=== PATIENT | female | born 1980 | race American Indian/Alaskan Native ===

== ENCOUNTER 2017-05-08 18:36 | Emergency (ER) | payer MEDICAID ==
[2017-05-09 03:21] VITALS: BP 117/75
== END 2017-05-09 05:03 | disposition left against medical advice (07) ==
LOC: ED 18:36
DX: R51 Headache (principal); R42 Dizziness and giddiness; Z53.21 Procedure and treatment not carried out due to patient leaving prior to being seen by health care provider

== ENCOUNTER 2017-08-28 12:53 | Emergency (ER) | payer MEDICAID ==
[2017-08-28 13:58] VITALS: BP 133/69
[2017-08-28 14:42] LABS: Basophils # (Auto) 0.1 K/mm3 (0.0-0.1); Basophils % (Auto) 0.7 % (0.0-1.8); Eosinophils % (Auto) 0.4 % (0.0-4.3); Hematocrit 40.9 % (30.3-42.9); Hemoglobin 13.8 gm/dl (10.1-14.3); Lymphocytes % (Auto) 10.9 % (13.4-35.0); Mean Corpuscular HGB Conc 34 % (30-34); Mean Corpuscular Hemoglobin 29 pg (28-32); Mean Corpuscular Volume 86 fl (79-97); Monocytes # (Auto) 0.3 K/mm3 (0.0-0.8); Monocytes % (Auto) 3.2 % (0.0-7.3); Platelet Count 318 K/mm3 (140-440); Red Blood Count 4.76 M/mm3 (3.65-5.03)
[2017-08-28 14:51] LABS: Bilirubin,Urine NEG (Negative); Blood,Urine NEG (Negative); Color,Urine Yellow (Yellow); Mucus,Urine FEW /HPF; Urobilinogen,Urine < 2.0 mg/dL (<2.0)
[2017-08-28 14:53] LABS: Alanine Aminotransferase 12 units/L (7-56); Albumin 4.4 g/dL (3.9-5); BUN/Creatinine Ratio 23; Blood Urea Nitrogen 14 mg/dL (7-17); Calcium 9.5 mg/dL (8.4-10.2); Hemolysis Index 8; Lipase 14 units/L (13-60)
== END 2017-08-28 18:20 | disposition left against medical advice (07) ==
LOC: ED 12:53
DX: R10.9 Unspecified abdominal pain (principal); Z53.21 Procedure and treatment not carried out due to patient leaving prior to being seen by health care provider
CPT/HCPCS: 36415; 80053; 81001; 83690; 84703; 85025

== ENCOUNTER 2018-03-14 12:58 | Emergency (ER) | payer MEDICAID ==
[2018-03-14] MEDS ORDERED: NACL 0.9% 1000 ML 1,000 ML IV ONE (13:10)
[2018-03-14 13:47] LABS: Basophils # (Auto) 0.1 K/mm3 (0.0-0.1); Basophils % (Auto) 1.2 % (0.0-1.8); Eosinophils # (Auto) 0.1 K/mm3 (0.0-0.4); Hematocrit 37.2 % (30.3-42.9); Hemoglobin 12.4 gm/dl (10.1-14.3); Lymphocytes # (Auto) 2.7 K/mm3 (1.2-5.4); Mean Corpuscular HGB Conc 33 % (30-34); Mean Corpuscular Hemoglobin 29 pg (28-32); Mean Corpuscular Volume 88 fl (79-97); Monocytes # (Auto) 0.4 K/mm3 (0.0-0.8); Monocytes % (Auto) 5.8 % (0.0-7.3); Platelet Count 306 K/mm3 (140-440); Red Blood Count 4.23 M/mm3 (3.65-5.03); Red Cell Distribution Width 15.9 % (13.2-15.2)
[2018-03-14 14:15] LABS: Albumin 4.2 g/dL (3.9-5); BUN/Creatinine Ratio 25; Blood Urea Nitrogen 15 mg/dL (7-17); Calcium 9.7 mg/dL (8.4-10.2); Hemolysis Index 178
[2018-03-14 15:04] LABS: Alanine Aminotransferase 13 units/L (7-56)
[2018-03-14] MEDS ORDERED: TORADOL IM ONE (20:08)
[2018-03-14 20:50] LABS: Bacteria,Urine 1+ /HPF (Negative); Bilirubin,Urine NEG (Negative); Blood,Urine NEG (Negative); Color,Urine Yellow (Yellow); Mucus,Urine FEW /HPF; Protein,Urine <15 mg/dL mg/dL (Negative)
[2018-03-14 20:52] LABS: HCG Qualitative,Urine Negative (Negative)
[2018-03-14] MEDS ORDERED: MACROBID PO ONE (21:32)
--- NOTE | 2018-03-14 21:33 | Ultrasound Report ---
FINAL REPORT EXAM: US TRANSVAGINAL HISTORY: pelvic pain, hx of cyst TECHNIQUE: Ultrasound pelvis transvaginal PRIORS: None. FINDINGS: Uterus is 10.6 x 5.6 x 6.2 centimeters. No myometrial abnormalities identified There is a small fluid-filled sac at the fundus with thin chatman measuring 1.3 centimeters in transverse diameter no pole or yolk sac identified. The endometrium is thickened measuring 1.86 centimeters. Small amount of free fluid noted in the cul-de-sac Right ovary is 2.8 x 2.0 x 2.3 centimeters Normal sonographic appearance with normal flow on pulsed and color Doppler evaluation Left ovary is 2.8 x 2.3 x 2.6 centimeters. Centrally within the left ovary there is a irregular mixed echogenicity cystic structure measuring 1.8 centimeters in transverse diameter. Normal flow to the left ovary on pulsed and color Doppler evaluation IMPRESSION: Thickened endometrium with some fluid noted at the fundus of the uterus. Nonspecific finding. Consideration could be given to endometrial polyp Irregular 1.8 centimeters cyst within the left ovary possibly hemorrhagic or involuting cyst Small amount of free fluid noted in the cul-de-sac
--- NOTE | 2018-03-14 21:34 | Emergency Department Report ---
ED Abdominal Pain HPI - General Chief Complaint: Abdominal Pain Stated Complaint: STOMACH PAIN Time Seen by Provider: 03/14/18 20:02 Source: patient Mode of arrival: Ambulatory Limitations: No Limitations - History of Present Illness Initial Comments: 37-year-old female with a past medical history of ovarian cysts, umbilical hernia, sickle cell trait, and tubal ligation presents to Hospital complaining of lower abd pain 2 days. Pain is constant and pressure-like worse with palpation, Moderate to severe in intensity at times. No alleviating factors. Patient denies dysuria, hematuria, nausea, vomiting, diarrhea, fever, vaginal discharge, or vaginal bleeding. LMP approximately 3 weeks ago - Related Data Previous Rx's Medication Instructions Recorded Last Taken Type Nitrofurantoin Smith/M-Cryst 100 mg PO Q12HR #14 capsule 05/14/14 Unknown Rx [Macrobid] Ondansetron [Zofran Odt] 4 mg PO Q6H #10 tab.rapdis 05/14/14 Unknown Rx Phenazopyridine [Pyridium] 200 mg PO TID #6 tablet 05/14/14 Unknown Rx Hyoscyamine Subl [Levsin Sl 0.125 0.125 mg SL Q6HR PRN #12 tab 08/24/15 Unknown Rx TAB] Promethazine [Phenergan TAB] 25 mg PO Q6HR PRN #20 tab 08/24/15 Unknown Rx HYDROcodone/APAP 5-325 [Mcdonald 1 each PO Q6HR PRN #15 tablet 03/14/18 Unknown Rx 5/325] Ibuprofen [Motrin] 600 mg PO Q8H PRN #30 tablet 03/14/18 Unknown Rx Nitrofurantoin Monohyd/M-Cryst 100 mg PO BID #13 capsule 03/14/18 Unknown Rx [Macrobid 100 mg Capsule] Allergies Allergy/AdvReac Type Severity Reaction Status Date / Time tramadol AdvReac Headache Verified 05/14/14 08:44 ED Review of Systems ROS: Stated complaint: STOMACH PAIN Other details as noted in HPI Comment: All other systems reviewed and negative ED Past Medical Hx - Past Medical History Previous Medical History?: Yes Hx Sickle Cell Disease: Yes (Trait only) Additional medical history: Bursitis both shoulders. scoleosis - Surgical History Past Surgical History?: No - Social History Smoking Status: Current Every Day Smoker Substance Use Type: None - Medications Home Medications: Home Medications Medication Instructions Recorded Confirmed Last Taken Type Nitrofurantoin Smith/M-Cryst 100 mg PO Q12HR #14 capsule 05/14/14 Unknown Rx [Macrobid] Ondansetron [Zofran Odt] 4 mg PO Q6H #10 tab.rapdis 05/14/14 Unknown Rx Phenazopyridine [Pyridium] 200 mg PO TID #6 tablet 05/14/14 Unknown Rx Hyoscyamine Subl [Levsin Sl 0.125 0.125 mg SL Q6HR PRN #12 tab 08/24/15 Unknown Rx TAB] Promethazine [Phenergan TAB] 25 mg PO Q6HR PRN #20 tab 08/24/15 Unknown Rx HYDROcodone/APAP 5-325 [Mcdonald 1 each PO Q6HR PRN #15 tablet 03/14/18 Unknown Rx 5/325] Ibuprofen [Motrin] 600 mg PO Q8H PRN #30 tablet 03/14/18 Unknown Rx Nitrofurantoin Monohyd/M-Cryst 100 mg PO BID #13 capsule 03/14/18 Unknown Rx [Macrobid 100 mg Capsule] ED Physical Exam - General Limitations: No Limitations - Other Other exam information: General: No limitations, patient is alert in no acute distress Head exam: Atraumatic, normocephalic Eyes exam: Normal appearance, pupils equal reactive to light, extraocular movements intact ENT: Moist mucous membrane, normal oropharynx Neck exam: Normal inspection, full range of motion, no meningismus nontender Respiratory exam: Clear to auscultation bilateral, no wheezes, rales, crackles Cardiovascular: Normal rate and rhythm, normal heart sounds Abdomen: Soft, nondistended, suprapubic tenderness, with normal bowel sounds, no rebound, or guarding Extremity: Full range of motion normal inspection no deformity Back: Normal Inspection, full range of motion, no tenderness Neurologic: Alert, oriented x3, cranial nerves intact, no motor or sensory deficit Psychiatric: normal affect, normal mood Skin: Warm, dry, intact ED Course Vital Signs 03/14/18 03/14/18 13:05 21:45 Temperature 98.3 F Pulse Rate 87 72 Respiratory 16 16 Rate Blood Pressure 131/71 Blood Pressure 104/69 [Left] O2 Sat by Pulse 99 100 Oximetry - Reevaluation(s) Reevaluation #1: 03/14/18 Patient states Toradol for pain Macrobid for UTI ED Medical Decision Making - Lab Data Result diagrams: 03/14/18 13:14 03/14/18 13:14 Lab Results 03/14/18 03/14/18 03/14/18 Range/Units 13:14 13:14 20:29 WBC 7.6 (4.5-11.0) K/mm3 RBC 4.23 (3.65-5.03) M/mm3 Hgb 12.4 (10.1-14.3) gm/dl Hct 37.2 (30.3-42.9) % MCV 88 (79-97) fl MCH 29 (28-32) pg MCHC 33 (30-34) % RDW 15.9 H (13.2-15.2) % Plt Count 306 (140-440) K/mm3 Lymph % (Auto) 36.0 H (13.4-35.0) % Smith % (Auto) 5.8 (0.0-7.3) % Eos % (Auto) 2.0 (0.0-4.3) % Baso % (Auto) 1.2 (0.0-1.8) % Lymph # 2.7 (1.2-5.4) K/mm3 Smith # 0.4 (0.0-0.8) K/mm3 Eos # 0.1 (0.0-0.4) K/mm3 Baso # 0.1 (0.0-0.1) K/mm3 Seg Neutrophils % 55.0 (40.0-70.0) % Seg Neutrophils # 4.2 (1.8-7.7) K/mm3 Sodium 138 (137-145) mmol/L Potassium 4.4 (3.6-5.0) mmol/L Chloride 104.3 (98-107) mmol/L Carbon Dioxide 20 L (22-30) mmol/L Anion Gap 18 mmol/L BUN 15 (7-17) mg/dL Creatinine 0.6 L (0.7-1.2) mg/dL Estimated GFR > 60 ml/min BUN/Creatinine Ratio 25 % Glucose 92 (65-100) mg/dL Calcium 9.7 (8.4-10.2) mg/dL Total Bilirubin 0.30 (0.1-1.2) mg/dL AST 33 (5-40) units/L ALT 13 (7-56) units/L Alkaline Phosphatase 79 (35-129) units/L Total Protein 7.6 (6.3-8.2) g/dL Albumin 4.2 (3.9-5) g/dL Albumin/Globulin Ratio 1.2 % Urine Color Yellow (Yellow) Urine Turbidity Slightly-cloudy (Clear) Urine pH 6.0 (5.0-7.0) Ur Specific [place] 1.012 (1.003-1.030) Urine Protein <15 mg/dl (Negative) mg/dL Urine Glucose (UA) Neg (Negative) mg/dL Urine Ketones Neg (Negative) mg/dL Urine Blood Neg (Negative) Urine Nitrite Neg (Negative) Urine Bilirubin Neg (Negative) Urine Urobilinogen 2.0 (<2.0) mg/dL Ur Leukocyte Esterase Mod (Negative) Urine WBC (Auto) 12.0 H (0.0-6.0) /HPF Urine RBC (Auto) 4.0 (0.0-6.0) /HPF U Epithel Cells (Auto) 6.0 (0-13.0) /HPF Urine Bacteria (Auto) 1+ (Negative) /HPF Urine Mucus Few /HPF Urine HCG, Qual Negative (Negative) - Radiology Data Radiology results: report reviewed Pelvic/Transvaginal ultrasound: thickened endometrium with some fluid noted at the fundus of the uterus. Nonspecific finding. Consideration could be given to endometrial polyp. Irregular 1.8cm Cyst within the left ovary possibly hemorrhagic or involuting cyst - Medical Decision Making Pelvic pain 2 days. Positive UTI UA. Ultrasound reviewed and positive cyst. Outpatient follow-up with [facility] and [facility] will be encouraged. Patient received Macrobid and Toradol. - Differential Diagnosis UTI, , diverticulitis, appendicitis, ovarian cyst, PID Critical Care Time: No Critical care attestation.: If time is entered above; I have spent that time in minutes in the direct care of this critically ill patient, excluding procedure time. ED Disposition Clinical Impression: UTI (urinary tract infection), Ovarian cyst Disposition: - TO HOME OR SELFCARE Is pt being admited?: No Does the pt Need Aspirin: No Condition: Stable Instructions: Ovarian Cyst (ED), Urinary Tract Infection in Women (ED) Additional Instructions: Take the medication as prescribed. Follow up with your doctor or with the doctors provided. Return if symptoms worsen as indicated by your discharge instructions Prescriptions: HYDROcodone/APAP 5-325 [Mcdonald 5/325] 1 each PO Q6HR PRN #15 tablet PRN Reason: Pain Ibuprofen [Motrin] 600 mg PO Q8H PRN #30 tablet PRN Reason: Pain Nitrofurantoin Monohyd/M-Cryst [Macrobid 100 mg Capsule] 100 mg PO BID #13 capsule Referrals: KIANA WOOTEN JR, MD [Staff Physician] - 3-5 Days [facility] [Provider Group] - 3-5 Days SARAH HERNANDEZ MD [Staff Physician] - 3-5 Days Time of Disposition: 22:05
--- NOTE | 2018-03-14 21:35 | Ultrasound Report ---
FINAL REPORT EXAM: US PELVIC COMPLETE HISTORY: pelvic pain, hx of cyst TECHNIQUE: PRIORS: None. FINDINGS: Uterus is 10.6 x 5.6 x 6.2 centimeters. No myometrial abnormalities identified There is a small fluid-filled sac at the fundus with thin chatman measuring 1.3 centimeters in transverse diameter no pole or yolk sac identified. The endometrium is thickened measuring 1.86 centimeters. Small amount of free fluid noted in the cul-de-sac Right ovary is 2.8 x 2.0 x 2.3 centimeters Normal sonographic appearance with normal flow on pulsed and color Doppler evaluation Left ovary is 2.8 x 2.3 x 2.6 centimeters. Centrally within the left ovary there is a irregular mixed echogenicity cystic structure measuring 1.8 centimeters in transverse diameter. Normal flow to the left ovary on pulsed and color Doppler evaluation IMPRESSION: Thickened endometrium with some fluid noted at the fundus of the uterus. Nonspecific finding. Consideration could be given to endometrial polyp or hyperplasia Irregular 1.8 centimeters cyst within the left ovary possibly hemorrhagic or involuting cyst Small amount of free fluid noted in the cul-de-sac
[2018-03-14 21:46] VITALS: BP 104/69
== END 2018-03-14 22:16 | disposition home or self-care (01) ==
LOC: ED 12:58
DX: N39.0 Urinary tract infection, site not specified (principal); N83.209 Unspecified ovarian cyst, unspecified side; F17.200 Nicotine dependence, unspecified, uncomplicated; D57.3 Sickle-cell trait; Z88.6 Allergy status to analgesic agent; Z79.899 Other long term (current) drug therapy
CPT/HCPCS: 36415; 76830; 76856; 80053; 81001; 81025; 85025; 96372; 99284; J1885

== ENCOUNTER 2018-08-14 02:17 | Emergency (ER) | payer MEDICAID ==
[2018-08-14 02:44] LABS: Mean Corpuscular HGB Conc 33 % (30-34); Mean Corpuscular Volume 87 fl (79-97); Platelet Count 307 K/mm3 (140-440); Red Blood Count 4.48 M/mm3 (3.65-5.03); Red Cell Distribution Width 16.1 % (13.2-15.2)
[2018-08-14] MEDS ORDERED: ZOFRAN IV ONE (02:56)
[2018-08-14] MEDS ORDERED: ZOFRAN ONE (02:56)
[2018-08-14 03:08] LABS: Alanine Aminotransferase 12 units/L (7-56); Albumin 4.3 g/dL (3.9-5); BUN/Creatinine Ratio 20; Blood Urea Nitrogen 12 mg/dL (7-17); Calcium 9.3 mg/dL (8.4-10.2); Hemolysis Index 3
[2018-08-14] MEDS ORDERED: NACL 0.9% 1000 ML 1,000 ML IV ONE (03:14)
[2018-08-14] MEDS ORDERED: TORADOL IV ONE (03:15)
[2018-08-14] MEDS ORDERED: DILAUDID IV ONE (03:15)
--- NOTE | 2018-08-14 03:16 | Emergency Department Report ---
ED General Adult HPI - General Chief complaint: Abdominal Pain Stated complaint: ABD PAIN Time Seen by Provider: 08/14/18 02:26 Source: patient, EMS (ems notes not available at time of chart dictation), RN notes reviewed, old records reviewed Mode of arrival: Stretcher Limitations: No Limitations - History of Present Illness Initial comments: This is a 37-year-old female. The patient is not known to this provider previously. The patient reports that she is not . Patient endorses a history of left-sided ovarian cyst. The patient reports that her sql server developer is Dr. Hollis Gutierrez. He denies a history of abdominal surgeries to this provider. She presents to the emergency room with a complaint of constant suprapubic and bilateral lower quadrant abdominal pain, there are no exacerbating or relieving factors, there is no radiation. The patient denies irritative, obstructive urinary symptoms. Endorses a few episodes of nonbloody, nonbilious emesis. Patient reports that she defecated within the past 24-36 hours. She is passing gas normally. -: Gradual, hour(s) Location: abdomen, pelvis Radiation: non-radiation Severity scale (0 -10): 10 Quality: aching Consistency: constant Improves with: none Worsens with: none - Related Data Previous Rx's Medication Instructions Recorded Last Taken Type Nitrofurantoin [place]/M-Cryst 100 mg PO Q12HR #14 capsule 05/14/14 Unknown Rx [Macrobid] Ondansetron [Zofran Odt] 4 mg PO Q6H #10 tab.rapdis 05/14/14 Unknown Rx Phenazopyridine [Pyridium] 200 mg PO TID #6 tablet 05/14/14 Unknown Rx Hyoscyamine Subl [Levsin Sl 0.125 0.125 mg SL Q6HR PRN #12 tab 08/24/15 Unknown Rx TAB] Promethazine [Phenergan TAB] 25 mg PO Q6HR PRN #20 tab 08/24/15 Unknown Rx HYDROcodone/APAP 5-325 [[place] 1 each PO Q6HR PRN #15 tablet 03/14/18 Unknown Rx 5/325] Ibuprofen [Motrin] 600 mg PO Q8H PRN #30 tablet 03/14/18 Unknown Rx Nitrofurantoin Monohyd/M-Cryst 100 mg PO BID #13 capsule 03/14/18 Unknown Rx [Macrobid 100 mg Capsule] Acetaminophen [Tylenol Arthritis] 650 mg PO Q6HR PRN #30 tablet.er 08/14/18 Unknown Rx Ibuprofen [Motrin] 600 mg PO Q8H PRN #30 tablet 08/14/18 Unknown Rx Ondansetron [Zofran Odt] 4 mg PO Q8HR PRN #20 tab.rapdis 08/14/18 Unknown Rx Allergies Allergy/AdvReac Type Severity Reaction Status Date / Time tramadol AdvReac Headache Verified 05/14/14 08:44 ED Review of Systems ROS: Stated complaint: ABD PAIN Other details as noted in HPI Constitutional: malaise. denies: fever Eyes: denies: vision change ENT: denies: epistaxis Respiratory: denies: cough Cardiovascular: denies: chest pain Gastrointestinal: abdominal pain, nausea, vomiting. denies: diarrhea, constip ation, hematemesis, melena, hematochezia Genitourinary: denies: dysuria Musculoskeletal: denies: back pain Skin: denies: lesions Neurological: weakness ED Past Medical Hx - Past Medical History Previous Medical History?: Yes Hx Sickle Cell Disease: Yes (Trait only) Additional medical history: Bursitis both shoulders. Scoleosis. Ovarian cyst. Umbilical hernia - Surgical History Past Surgical History?: No - Social History Smoking Status: Current Every Day Smoker Substance Use Type: None - Medications Home Medications: Home Medications Medication Instructions Recorded Confirmed Last Taken Type Nitrofurantoin [place]/M-Cryst 100 mg PO Q12HR #14 capsule 05/14/14 Unknown Rx [Macrobid] Ondansetron [Zofran Odt] 4 mg PO Q6H #10 tab.rapdis 05/14/14 Unknown Rx Phenazopyridine [Pyridium] 200 mg PO TID #6 tablet 05/14/14 Unknown Rx Hyoscyamine Subl [Levsin Sl 0.125 0.125 mg SL Q6HR PRN #12 tab 08/24/15 Unknown Rx TAB] Promethazine [Phenergan TAB] 25 mg PO Q6HR PRN #20 tab 08/24/15 Unknown Rx HYDROcodone/APAP 5-325 [[place] 1 each PO Q6HR PRN #15 tablet 03/14/18 Unknown Rx 5/325] Ibuprofen [Motrin] 600 mg PO Q8H PRN #30 tablet 03/14/18 Unknown Rx Nitrofurantoin Monohyd/M-Cryst 100 mg PO BID #13 capsule 03/14/18 Unknown Rx [Macrobid 100 mg Capsule] Acetaminophen [Tylenol Arthritis] 650 mg PO Q6HR PRN #30 tablet.er 08/14/18 Unknown Rx Ibuprofen [Motrin] 600 mg PO Q8H PRN #30 tablet 08/14/18 Unknown Rx Ondansetron [Zofran Odt] 4 mg PO Q8HR PRN #20 tab.rapdis 08/14/18 Unknown Rx ED Physical Exam - General Limitations: No Limitations General appearance: alert, anxious - Head Head exam: Present: atraumatic, normocephalic - Eye Eye exam: Present: normal appearance, EOMI. Absent: nystagmus - ENT ENT exam: Present: normal exam, normal orophraynx, mucous membranes moist, normal external ear exam - Neck Neck exam: Present: normal inspection, full ROM. Absent: tenderness, meningismus - Respiratory Respiratory exam: Present: normal lung sounds bilaterally. Absent: respiratory distress - Cardiovascular Cardiovascular Exam: Present: regular rate, normal rhythm, normal heart sounds. Absent: bradycardia, tachycardia, irregular rhythm, systolic murmur, diastolic murmur, rubs, gallop - GI/Abdominal GI/Abdominal exam: Present: soft, tenderness, other (there is mild lower abdominal tenderness, without rebound, guarding or peritoneal signs.). Absent: distended, guarding, rebound, rigid, pulsatile mass - External exam: Present: normal external exam Speculum exam: Present: vaginal bleeding, other (chaperoned by nurse Meagan Ponce) - Extremities Exam Extremities exam: Present: normal inspection, full ROM, other (2+ pulses noted in the bilateral upper, lower extremities. Compartments soft. No long bony tenderness. The pelvis is stable.). Absent: pedal edema, joint swelling, calf tenderness - Back Exam Back exam: Present: normal inspection, full ROM, CVA tenderness (R). Absent: tenderness, CVA tenderness (L), muscle spasm, paraspinal tenderness, vertebral tenderness - Neurological Exam Neurological exam: Present: alert, oriented X3, CN II-XII intact, other (Extraocular movements intact. Tongue midline. No facial droop. Facial sensation intact to light touch in the V1, V2, V3 distribution bilaterally. 5 and 5 strength in 4 extremities.. Sensation is intact to light touch in 4 extremities.). Absent: motor sensory deficit - Psychiatric Psychiatric exam: Present: normal affect, normal mood - Skin Skin exam: Present: warm, dry, intact, normal color. Absent: rash ED Course Vital Signs 08/14/18 08/14/18 08/14/18 02:29 05:04 05:59 Temperature 97.6 F Pulse Rate 88 62 Respiratory 20 11 L Rate Blood Pressure 124/62 117/57 [Left] O2 Sat by Pulse 99 97 98 Oximetry 08/14/18 06:10 Temperature Pulse Rate 73 Respiratory 12 Rate Blood Pressure 100/55 [Left] O2 Sat by Pulse Oximetry - Reevaluation(s) Reevaluation #1: 08/14/18 05:47 According to the lead medical technologist, because of the technical issue, they are not able to push the images over to remote radiology. They have information technology working on this issue. Care will be transferred to the oncoming ER physician, Dr. Le Rodriguez, to follow-up on ultrasound and arrange final disposition. ED Medical Decision Making - Lab Data Result diagrams: 08/14/18 02:38 08/14/18 02:38 Vital Signs 08/14/18 02:29 Temperature 97.6 F Pulse Rate 88 Respiratory 20 Rate Blood Pressure 124/62 [Left] O2 Sat by Pulse 99 Oximetry Lab Results 08/14/18 08/14/18 08/14/18 Range/Units 02:38 02:38 02:38 WBC 7.8 (4.5-11.0) K/mm3 RBC 4.48 (3.65-5.03) M/mm3 Hgb 13.0 (10.1-14.3) gm/dl Hct 39.0 (30.3-42.9) % MCV 87 (79-97) fl MCH 29 (28-32) pg MCHC 33 (30-34) % RDW 16.1 H (13.2-15.2) % Plt Count 307 (140-440) K/mm3 Sodium 143 (137-145) mmol/L Potassium 3.7 (3.6-5.0) mmol/L Chloride 106.8 (98-107) mmol/L Carbon Dioxide 23 (22-30) mmol/L Anion Gap 17 mmol/L BUN 12 (7-17) mg/dL Creatinine 0.6 L (0.7-1.2) mg/dL Estimated GFR > 60 ml/min BUN/Creatinine Ratio 20 % Glucose 112 H (65-100) mg/dL Calcium 9.3 (8.4-10.2) mg/dL Total Bilirubin 0.50 (0.1-1.2) mg/dL AST 16 (5-40) units/L ALT 12 (7-56) units/L Alkaline Phosphatase 94 (35-129) units/L Total Protein 7.1 (6.3-8.2) g/dL Albumin 4.3 (3.9-5) g/dL Albumin/Globulin Ratio 1.5 % Lipase 22 (13-60) units/L HCG, Quant < 2 (0-4) mIU/mL Urine Color (Yellow) Urine Turbidity (Clear) Urine pH (5.0-7.0) Ur Specific [place] (1.003-1.030) Urine Protein (Negative) mg/dL Urine Glucose (UA) (Negative) mg/dL Urine Ketones (Negative) mg/dL Urine Blood (Negative) Urine Nitrite (Negative) Urine Bilirubin (Negative) Urine Urobilinogen (<2.0) mg/dL Ur Leukocyte Esterase (Negative) Urine WBC (Auto) (0.0-6.0) /HPF Urine RBC (Auto) (0.0-6.0) /HPF U Epithel Cells (Auto) (0-13.0) /HPF Urine Mucus /HPF Urine Opiates Screen Urine Methadone Screen Ur Barbiturates Screen Ur Phencyclidine Scrn Ur Amphetamines Screen U Benzodiazepines Scrn Urine Cocaine Screen 08/14/18 08/14/18 Range/Units 03:49 03:49 WBC (4.5-11.0) K/mm3 RBC (3.65-5.03) M/mm3 Hgb (10.1-14.3) gm/dl Hct (30.3-42.9) % MCV (79-97) fl MCH (28-32) pg MCHC (30-34) % RDW (13.2-15.2) % Plt Count (140-440) K/mm3 Sodium (137-145) mmol/L Potassium (3.6-5.0) mmol/L Chloride (98-107) mmol/L Carbon Dioxide (22-30) mmol/L Anion Gap mmol/L BUN (7-17) mg/dL Creatinine (0.7-1.2) mg/dL Estimated GFR ml/min BUN/Creatinine Ratio % Glucose (65-100) mg/dL Calcium (8.4-10.2) mg/dL Total Bilirubin (0.1-1.2) mg/dL AST (5-40) units/L ALT (7-56) units/L Alkaline Phosphatase (35-129) units/L Total Protein (6.3-8.2) g/dL Albumin (3.9-5) g/dL Albumin/Globulin Ratio % Lipase (13-60) units/L HCG, Quant (0-4) mIU/mL Urine Color Red (Yellow) Urine Turbidity Clear (Clear) Urine pH 9.0 H (5.0-7.0) Ur Specific [place] 1.013 (1.003-1.030) Urine Protein 100 mg/dl (Negative) mg/dL Urine Glucose (UA) Neg (Negative) mg/dL Urine Ketones Neg (Negative) mg/dL Urine Blood Lg (Negative) Urine Nitrite Neg (Negative) Urine Bilirubin Neg (Negative) Urine Urobilinogen < 2.0 (<2.0) mg/dL Ur Leukocyte Esterase Tr (Negative) Urine WBC (Auto) 61.0 H (0.0-6.0) /HPF Urine RBC (Auto) 148.0 (0.0-6.0) /HPF U Epithel Cells (Auto) 2.0 (0-13.0) /HPF Urine Mucus Few /HPF Urine Opiates Screen Presumptive negative Urine Methadone Screen Presumptive negative Ur Barbiturates Screen Presumptive negative Ur Phencyclidine Scrn Presumptive negative Ur Amphetamines Screen Presumptive negative U Benzodiazepines Scrn Presumptive negative Urine Cocaine Screen Presumptive negative - Radiology Data Radiology results: report reviewed, image reviewed Print Report Referring Physician: BRODY MCGRATH Patient Name: MILAGROS DIAMOND Date of : 1980 Sex: Female Report Date: 2018-08-14 Report Status: Finalized Findings [facility] [address] [place] [address] Cat Scan Report Signed Patient: MILAGROS DIAMOND MR#: [id number] : 1980 Acct:[id number] Age/Sex: 37 / F ADM Date: 08/14/18 Loc: ED Attending Dr: Ordering Physician: BRODY MCGRATH MD Date of Service: 08/14/18 Procedure(s): CT abdomen pelvis w con Accession Number(s): [id number] cc: BRODY MCGRATH MD PROCEDURE: CT ABDOMEN PELVIS W CON TECHNIQUE: CT imaging is obtained through the abdomen and pelvis following intravenous administration of contrast in arterial and delayed phases HISTORY: abd pain n/v COMPARISONS: None FINDINGS: Partially visualized intrathoracic contents are unremarkable. The liver, gallbladder, pancreas, spleen, and adrenal glands are unremarkable. Kidneys show no worrisome lesions, hydronephrosis, or calculi. A couple of simple appearing right renal cysts are noted measuring up to 2 cm. Urinary bladder is without intraluminal stone. Question mild urinary bladder wall thickening. Retroverted uterus. No free fluid in the pelvis. Small and large bowel are normal in caliber. Appendix is normal. No free air, free fluid, or lymphadenopathy identified. Aorta is normal in course and caliber. Superficial soft tissues are remarkable for rectus diastasis and a small fat-containing umbilical hernia. No acute or aggressive appearing skeletal findings. IMPRESSION: Mild urinary bladder wall thickening, which may be infectious in etiology. Correlation with urinalysis is requested. No other potentially acute findings in the abdomen or pelvis. This document is electronically signed by Brody Santoyo MD., August 14 2018 04:23:57 AM ET Transcribed By: MB Dictated By: BRODY SANTOYO MD Electronically Authenticated By: BRODY SANTOYO MD Signed Date/Time: 08/14/18 0426 Referring Physician: BRODY MCGRATH Patient Name: MILAGROS DIAMOND Date of : 1980 Sex: Female Report Date: 2018-08-14 Report Status: Finalized [facility] [address] [place] [address] Ultrasound Report Signed Patient: MILAGROS DIAMOND MR#: [id number] : 1980 Acct:[id number] Age/Sex: 37 / F ADM Date: 08/14/18 Loc: ED A ttending Dr: Ordering Physician: BRODY MCGRATH MD Date of Service: 03/08/19 Procedure(s): US transvaginal Accession Number(s): [id number] cc: BRODY MCGRATH MD PROCEDURE: US TRANSVAGINAL TECHNIQUE: Real-time transvaginal sonography in multiple planes of the pelvis was performed with image documentation. Grayscale, color flow Doppler imaging and velocity spectral waveform analysis of the ovaries was employed (duplex imaging). HISTORY: abd pain pelvic pain COMPARISONS: None . FINDINGS: UTERUS Size: 9.2 x 5.5 x 5.6 cm. Endometrial thickness: 12.3 mm. Orientation: anteverted. Cervix: Normal. Fibroids/masses: There are 2 posterior fibroids measuring 1 cm and 1.8 cm.. Tubal embolization wires are incidentally noted extending into the cornua bilaterally. RIGHT Ovary: 3.5 x 2.3 x 2.4 cm. Appearance: Normal. Doppler images: Normal spectral waveforms and color flow images of the arterial inflow and venous outflow.. LEFT Ovary: 2.5 x 1.5 x 1.5 cm. Appearance: Normal. Doppler images: Normal spectral waveforms and color flow images of the arterial inflow and venous outflow.. Pelvic fluid: None. IMPRESSION: There are small incidental uterine fibroids. There is no ovarian torsion or mass. There is no free pelvic fluid.. This document is electronically signed by Mj Markham MD., August 14 2018 07:25:17 AM ET Transcribed By: CO Dictated By: MJ MARKHAM MD Electronically Authenticated By: MJ MARKHAM MD Signed Date/Time: 08/14/18 0727 - Medical Decision Making Differential diagnosis, including but not limited to: Dysfunctional uterine bleeding, ovarian cyst, ovarian torsion, endometriosis, pelvic inflammatory disease, appendicitis, colitis, constipation, diverticulitis Assessment and plan: 37-year-old female with acute on chronic abdominal pain related to menstruation. The patient is afebrile with reassuring vital signs with minimal lower abdominal tenderness. The patient feels much improved after hydromorphones, fluids and nausea medication. Patient is currently sleeping comfortably, in her stretcher, and is in no acute distress. CT scan of the abdomen and pelvis demonstrated no acute disease. Does not endorse any urinary symptoms, currently on her period, therefore, white blood cell count in her urine urinalysis is likely secondary to current menstruation. Clinically do not suspect urinary tract infection. May have a component of cannabinoid hyperemesis syndrome. Patient is clinically sober at this time. Critical care attestation.: If time is entered above; I have spent that time in minutes in the direct care of this critically ill patient, excluding procedure time. ED Disposition Clinical Impression: Abdominal pain, Dysmenorrhea Disposition: DC- TO HOME OR SELFCARE Is pt being admited?: No Does the pt Need Aspirin: No Condition: Stable Instructions: Abdominal Pain (ED) Additional Instructions: Cultures were sent today, and results will be available in the next 3-5 days. Have a primary care doctor or sql server developer contact the medical records department to obtain culture results. Please follow-up with a sql server developer or primary care doctor within the next 7-10 days. Take the pain medication, nausea medication as needed/directed. Urinalysis demonstrated the presence of cannabis, marijuana metabolites. I recommend the patient refrain from consuming marijuana, as this may exacerbate symptoms of abdominal pain, nausea and vomiting. Please return to the emergency room right away with new, worsening or different symptoms, projectile vomiting, change in mental status, confusion, new, worsening or different symptoms. Prescriptions: Ibuprofen [Motrin] 600 mg PO Q8H PRN #30 tablet PRN Reason: Pain Acetaminophen [Tylenol Arthritis] 650 mg PO Q6HR PRN #30 tablet.er PRN Reason: Pain Ondansetron [Zofran Odt] 4 mg PO Q8HR PRN #20 tab.rapdis PRN Reason: Nausea Referrals: [facility] [Provider Group] - 3-5 Days [facility] [Provider Group] - 3-5 Days [facility] [Provider Group] - 3-5 Days
--- NOTE | 2018-08-14 04:26 | Cat Scan Report ---
PROCEDURE: CT ABDOMEN PELVIS W CON TECHNIQUE: CT imaging is obtained through the abdomen and pelvis following intravenous administratio n of contrast in arterial and delayed phases HISTORY: abd pain n/v COMPARISONS: None FINDINGS: Partially visualized intrathoracic contents are unremarkable. The liver, gallbladder, pancreas, spleen, and adrenal glands are unremarkable. Kidneys show no worrisome lesions, hydronephrosis, or calculi. A couple of simple appearing right herber al cysts are noted measuring up to 2 cm. Urinary bladder is without intraluminal stone. Question mild urinary bladder wall thickening. Retroverted uterus. No free fluid in the pelvis. Small and large bowel are normal in caliber. Appendix is normal. No free air, free fluid, or lymphade nopathy identified. Aorta is normal in course and caliber. Superficial soft tissues are remarkable for rectus diastasis and a small fat-containing umbilical her gaurang. No acute or aggressive appearing skeletal findings. IMPRESSION: Mild urinary bladder wall thickening, which may be infectious in etiology. Correlation with urinalysi s is requested. No other potentially acute findings in the abdomen or pelvis. This document is electronically signed by Brody Weber MD., August 14 2018 04:23:57 AM ET
[2018-08-14 04:27] LABS: Amphetamine Screen,Urine PRESUMPTIVE NEGATIVE; Benzodiazepines Screen,Urine PRESUMPTIVE NEGATIVE; Bilirubin,Urine NEG (Negative); Blood,Urine LG (Negative); Cocaine Screen,Urine PRESUMPTIVE NEGATIVE; Color,Urine Red (Yellow); Methadone Screen,Urine PRESUMPTIVE NEGATIVE; Mucus,Urine FEW /HPF; Opiate Screen,Urine PRESUMPTIVE NEGATIVE; Urobilinogen,Urine < 2.0 mg/dL (<2.0)
[2018-08-14 04:49] LABS: Cannabinoid Screen,Urine PRESUMPTIVE POSITIVE
[2018-08-14 06:11] VITALS: BP 100/55
--- NOTE | 2018-08-14 07:26 | Ultrasound Report ---
PROCEDURE: US PELVIS DUPLEX DOPPLER COMP TECHNIQUE: Real-time transabdominal sonography in multiple planes of the pelvis was performed with i mage documentation. Grayscale, color flow Doppler imaging and velocity spectral waveform analysis of the ovaries was employed (duplex imaging). HISTORY: abd pain pelvic pain COMPARISONS: None . FINDINGS: UTERUS Size: 9.2 x 5.5 x 5.6 cm. Endometrial thickness: 12.3 mm. Orientation: anteverted. Cervix: Normal. Fibroids/masses: There are 2 posterior fibroids measuring 1 cm and 1.8 cm.. Tubal embolization wires are incidentally noted extending into the cornua bilaterally. RIGHT Ovary: 3.5 x 2.3 x 2.4 cm. Appearance: Normal. Doppler images: Normal spectral waveforms and color flow images of the arterial inflow and venous out flow.. LEFT Ovary: 2.5 x 1.5 x 1.5 cm. Appearance: Normal. Doppler images: Normal spectral waveforms and color flow images of the arterial inflow and venous out flow.. Pelvic fluid: None. IMPRESSION: There are small incidental uterine fibroids. There is no ovarian torsion or mass. There is no free pelvic fluid.. This document is electronically signed by Mj Dominguez MD., August 14 2018 07:24:32 AM ET
--- NOTE | 2018-08-14 07:27 | Ultrasound Report ---
PROCEDURE: US TRANSVAGINAL TECHNIQUE: Real-time transvaginal sonography in multiple planes of the pelvis was performed with patricia ge documentation. Grayscale, color flow Doppler imaging and velocity spectral waveform analysis of th e ovaries was employed (duplex imaging). HISTORY: abd pain pelvic pain COMPARISONS: None . FINDINGS: UTERUS Size: 9.2 x 5.5 x 5.6 cm. Endometrial thickness: 12.3 mm. Orientation: anteverted. Cervix: Normal. Fibroids/masses: There are 2 posterior fibroids measuring 1 cm and 1.8 cm.. Tubal embolization wires are incidentally noted extending into the cornua bilaterally. RIGHT Ovary: 3.5 x 2.3 x 2.4 cm. Appearance: Normal. Doppler images: Normal spectral waveforms and color flow images of the arterial inflow and venous out flow.. LEFT Ovary: 2.5 x 1.5 x 1.5 cm. Appearance: Normal. Doppler images: Normal spectral waveforms and color flow images of the arterial inflow and venous out flow.. Pelvic fluid: None. IMPRESSION: There are small incidental uterine fibroids. There is no ovarian torsion or mass. There is no free pelvic fluid.. This document is electronically signed by Mj Dominguez MD., August 14 2018 07:25:17 AM ET
== END 2018-08-14 08:08 | disposition home or self-care (01) ==
LOC: ED 02:17
DX: N94.6 Dysmenorrhea, unspecified (principal); F17.200 Nicotine dependence, unspecified, uncomplicated; R11.2 Nausea with vomiting, unspecified; Z88.5 Allergy status to narcotic agent
CPT/HCPCS: 36415; 74177; 76830; 80053; 80307; 81001; 83690; 84702; 85027; 87210; 87591; 93975; 96361; 96374; 96375; 99285; J1170; J1885; J2405; J7030; Q9967

== ENCOUNTER 2019-06-23 18:58 | Emergency (ER) | payer SELFPAY ==
--- NOTE | 2019-06-23 19:48 | Emergency Department Report ---
ED ENT HPI - General Chief complaint: Earache Stated complaint: EARACHE Time Seen by Provider: 06/23/19 19:43 Source: patient Mode of arrival: Ambulatory Limitations: No Limitations - History of Present Illness Initial comments: patient is a 38-year-old female presents emergency room with complaints of bilateral ear pain that began 2 days ago. She denies any drainage from the ear, fever, recent illness, sick contacts. She states she has a past medical history of sickle cell trait. She denies any daily medications. She states she has an allergy to tramadol. She states her last menstrual was last week. - Related Data Previous Rx's Medication Instructions Recorded Last Taken Type Nitrofurantoin Person/M-Cryst 100 mg PO Q12HR #14 capsule 05/14/14 Unknown Rx [Macrobid] Ondansetron [Zofran Odt] 4 mg PO Q6H #10 tab.rapdis 05/14/14 Unknown Rx Phenazopyridine [Pyridium] 200 mg PO TID #6 tablet 05/14/14 Unknown Rx Hyoscyamine Subl [Levsin Sl 0.125 0.125 mg SL Q6HR PRN #12 tab 08/24/15 Unknown Rx TAB] Promethazine [Phenergan TAB] 25 mg PO Q6HR PRN #20 tab 08/24/15 Unknown Rx HYDROcodone/APAP 5-325 [[place] 1 each PO Q6HR PRN #15 tablet 03/14/18 Unknown Rx 5/325] Ibuprofen [Motrin] 600 mg PO Q8H PRN #30 tablet 03/14/18 Unknown Rx Nitrofurantoin Monohyd/M-Cryst 100 mg PO BID #13 capsule 03/14/18 Unknown Rx [Macrobid 100 mg Capsule] Acetaminophen [Tylenol Arthritis] 650 mg PO Q6HR PRN #30 tablet.er 08/14/18 Unknown Rx Ibuprofen [Motrin] 600 mg PO Q8H PRN #30 tablet 08/14/18 Unknown Rx Ondansetron [Zofran Odt] 4 mg PO Q8HR PRN #20 tab.rapdis 08/14/18 Unknown Rx Amoxicillin [Amoxicillin TAB] 875 mg PO BID 10 Days #20 tablet 06/23/19 Unknown Rx Allergies Allergy/AdvReac Type Severity Reaction Status Date / Time tramadol AdvReac Headache Verified 05/14/14 08:44 ED Dental HPI - General Chief complaint: Earache Stated complaint: EARACHE Time Seen by Provider: 06/23/19 19:43 Source: patient Mode of arrival: Ambulatory Limitations: No Limitations - Related Data Previous Rx's Medication Instructions Recorded Last Taken Type Nitrofurantoin Person/M-Cryst 100 mg PO Q12HR #14 capsule 05/14/14 Unknown Rx [Macrobid] Ondansetron [Zofran Odt] 4 mg PO Q6H #10 tab.rapdis 05/14/14 Unknown Rx Phenazopyridine [Pyridium] 200 mg PO TID #6 tablet 05/14/14 Unknown Rx Hyoscyamine Subl [Levsin Sl 0.125 0.125 mg SL Q6HR PRN #12 tab 08/24/15 Unknown Rx TAB] Promethazine [Phenergan TAB] 25 mg PO Q6HR PRN #20 tab 08/24/15 Unknown Rx HYDROcodone/APAP 5-325 [[place] 1 each PO Q6HR PRN #15 tablet 03/14/18 Unknown Rx 5/325] Ibuprofen [Motrin] 600 mg PO Q8H PRN #30 tablet 03/14/18 Unknown Rx Nitrofurantoin Monohyd/M-Cryst 100 mg PO BID #13 capsule 03/14/18 Unknown Rx [Macrobid 100 mg Capsule] Acetaminophen [Tylenol Arthritis] 650 mg PO Q6HR PRN #30 tablet.er 08/14/18 Unknown Rx Ibuprofen [Motrin] 600 mg PO Q8H PRN #30 tablet 08/14/18 Unknown Rx Ondansetron [Zofran Odt] 4 mg PO Q8HR PRN #20 tab.rapdis 08/14/18 Unknown Rx Amoxicillin [Amoxicillin TAB] 875 mg PO BID 10 Days #20 tablet 06/23/19 Unknown Rx Allergies Allergy/AdvReac Type Severity Reaction Status Date / Time tramadol AdvReac Headache Verified 05/14/14 08:44 ED Review of Systems ROS: Stated complaint: EARACHE Other details as noted in HPI Comment: All other systems reviewed and negative ED Past Medical Hx - Past Medical History Previous Medical History?: Yes Hx Sickle Cell Disease: Yes (Trait only) Additional medical history: Bursitis both shoulders. Scoleosis. Ovarian cyst. Umbilical hernia - Surgical History Past Surgical History?: No - Social History Smoking Status: Current Every Day Smoker Substance Use Type: None - Medications Home Medications: Home Medications Medication Instructions Recorded Confirmed Last Taken Type Nitrofurantoin Person/M-Cryst 100 mg PO Q12HR #14 capsule 05/14/14 Unknown Rx [Macrobid] Ondansetron [Zofran Odt] 4 mg PO Q6H #10 tab.rapdis 05/14/14 Unknown Rx Phenazopyridine [Pyridium] 200 mg PO TID #6 tablet 05/14/14 Unknown Rx Hyoscyamine Subl [Levsin Sl 0.125 0.125 mg SL Q6HR PRN #12 tab 08/24/15 Unknown Rx TAB] Promethazine [Phenergan TAB] 25 mg PO Q6HR PRN #20 tab 08/24/15 Unknown Rx HYDROcodone/APAP 5-325 [[place] 1 each PO Q6HR PRN #15 tablet 03/14/18 Unknown Rx 5/325] Ibuprofen [Motrin] 600 mg PO Q8H PRN #30 tablet 03/14/18 Unknown Rx Nitrofurantoin Monohyd/M-Cryst 100 mg PO BID #13 capsule 03/14/18 Unknown Rx [Macrobid 100 mg Capsule] Acetaminophen [Tylenol Arthritis] 650 mg PO Q6HR PRN #30 tablet.er 08/14/18 Unknown Rx Ibuprofen [Motrin] 600 mg PO Q8H PRN #30 tablet 08/14/18 Unknown Rx Ondansetron [Zofran Odt] 4 mg PO Q8HR PRN #20 tab.rapdis 08/14/18 Unknown Rx Amoxicillin [Amoxicillin TAB] 875 mg PO BID 10 Days #20 tablet 06/23/19 Unknown Rx ED Physical Exam - General Limitations: No Limitations General appearance: alert, in no apparent distress - Head Head exam: Present: atraumatic, normocephalic - ENT ENT exam: Present: normal orophraynx, mucous membranes moist, other (right TM and canal are normal, left TM is bulging with mild erythema, TM is intact, left canal is normal, uvula is midline, no uvular edema, no tonsillar hypertrophy or exudates, no TTP over the bilateral mastoid processes) - Neck Neck exam: Absent: lymphadenopathy - Respiratory Respiratory exam: Present: normal lung sounds bilaterally. Absent: respiratory distress, wheezes, rales, rhonchi, stridor, chest wall tenderness, accessory muscle use, decreased breath sounds, prolonged expiratory - Cardiovascular Cardiovascular Exam: Present: regular rate, normal rhythm, normal heart sounds. Absent: systolic murmur, diastolic murmur, rubs, gallop - Neurological Exam Neurological exam: Present: alert, oriented X3 - Psychiatric Psychiatric exam: Present: normal affect, normal mood - Skin Skin exam: Present: warm, dry, intact ED Course Vital Signs 06/23/19 19:00 Temperature 98.3 F Respiratory 16 Rate Blood Pressure 118/70 ED Medical Decision Making - Medical Decision Making patient is a 38-year-old female presents emergency room with complaints of bilateral ear pain that began 2 days ago. She denies any drainage from the ear, fever, recent illness, sick contacts. She states she has a past medical history of sickle cell trait. She denies any daily medications. She states she has an allergy to tramadol. She states her last menstrual was last week. vitals are normal. on exam: right TM and canal are normal, left TM is bulging with mild erythema, TM is intact, left canal is normal, uvula is midline, no uvular edema, no tonsillar hypertrophy or exudates, no TTP over the bilateral mastoid processes. examination consistent with left otitis. No signs of mastoiditis. pt given prescription for amoxicillin. advised pt to please take medication as prescribed. May use Sudafed gvnv-afk-uevarpl to help with ear pressure. May use an ipxe-ehb-lysksmo ear relief drop. May take Tylenol or ibuprofen for any discomfort. Follow-up with a primary care doctor in the next 2-3 days for reexamination. Return to the emergency room for any new or worsening symptoms. - Differential Diagnosis otitis media, otitis externa, mastoiditis, peritonsillar abscess, FB Critical care attestation.: If time is entered above; I have spent that time in minutes in the direct care of this critically ill patient, excluding procedure time. ED Disposition Clinical Impression: Left otitis media Qualifiers: Otitis media type: suppurative Chronicity: acute Recurrence: non-recurrent Spontaneous tympanic membrane rupture: without spontaneous rupture Qualified Code(s): H66.002 - Acute suppurative otitis media without spontaneous rupture of ear drum, left ear Disposition: TO HOME OR SELFCARE Is pt being admited?: No Does the pt Need Aspirin: No Condition: Stable Instructions: Otitis Media (ED) Additional Instructions: please take medication as prescribed. May use Sudafed ijjs-hpp-reqxvtr to help with ear pressure. May use an dcka-gfl-pgqqece ear relief drop. May take Tylenol or ibuprofen for any discomfort. Follow-up with a primary care doctor in the next 2-3 days for reexamination. Return to the emergency room for any new or worsening symptoms. Prescriptions: Amoxicillin [Amoxicillin TAB] 875 mg PO BID 10 Days #20 tablet Referrals: ROSANA HOWELL MD [Staff Physician] - 2-3 Days [facility] [Outside] - 2-3 Days [facility] [Outside] - 2-3 Days [facility] [Provider Group] - 2-3 Days Time of Disposition: 19:46 Print Language: LITHUANIAN
[2019-06-23 19:53] VITALS: BP 118/70
== END 2019-06-23 19:50 | disposition home or self-care (01) ==
LOC: ED 18:58
DX: H66.92 Otitis media, unspecified, left ear (principal); F17.200 Nicotine dependence, unspecified, uncomplicated
CPT/HCPCS: 99282

== ENCOUNTER 2019-06-28 11:52 | Emergency (ER) | payer SELFPAY ==
[2019-06-28 12:50] VITALS: BP 112/72
--- NOTE | 2019-06-28 12:57 | Event Note ---
ED Screening Note ED Screening Note: The patient was seen in triage for continued and worsen ear pain (seen here 5 days ago). fever, vomiting and abdominal pain. sore throat too. Labs/imaging ordered to evaluate for a cause of this complaint. Vital signs reviewed, patient awake and alert in NAD. cxr, strep, labs This initial assessment/diagnostic orders/clinical plan/treatment(s) is/are subject to change based on patients health status, clinical progression and re- assessment by fellow clinical providers in the ED. Further treatment and workup at subsequent clinical providers discretion. Patient/guardian urged not to elope from the ED as their condition may be serious if not clinically assessed and managed. Initial orders include:
[2019-06-28 13:37] LABS: Basophils # (Auto) 0.1 K/mm3 (0.0-0.1); Hematocrit 37.5 % (30.3-42.9); Hemoglobin 12.6 gm/dl (10.1-14.3); Lymphocytes # (Auto) 1.6 K/mm3 (1.2-5.4); Lymphocytes % (Auto) 25.3 % (13.4-35.0); Mean Corpuscular HGB Conc 34 % (30-34); Mean Corpuscular Volume 83 fl (79-97); Monocytes # (Auto) 0.9 K/mm3 (0.0-0.8); Monocytes % (Auto) 14.2 % (0.0-7.3); Platelet Count 332 K/mm3 (140-440)
--- NOTE | 2019-06-28 13:39 | XRay Report ---
CHEST 2 VIEWS INDICATION / CLINICAL INFORMATION: cough. COMPARISON: None available. FINDINGS: SUPPORT DEVICES: None. HEART / MEDIASTINUM: No significant abnormality. LUNGS / PLEURA: No significant pulmonary or pleural abnormality. No pneumothorax. ADDITIONAL FINDINGS: No significant additional findings. IMPRESSION: 1. No acute findings. Signer Name: Alexander Ambriz MD Signed: 06/28/2019 1:34 PM Workstation Name: [id number]
[2019-06-28 14:02] LABS: Alanine Aminotransferase 10 units/L (7-56); Albumin 3.9 g/dL (3.9-5); BUN/Creatinine Ratio 13; Blood Urea Nitrogen 9 mg/dL (7-17); Calcium 9.7 mg/dL (8.4-10.2); Hemolysis Index 7
[2019-06-28] MEDS ORDERED: KETOROLAC 30 MG/1 ML INJ IM ONE (14:17)
--- NOTE | 2019-06-28 14:28 | Emergency Department Report ---
HPI - General Chief Complaint: Upper Respiratory Infection Time Seen by Provider: 06/28/19 12:48 - HPI HPI: 38-year-old -[place] female presents to the emergency department with a complaint of some flulike symptoms that been going on since last Friday, 5 days ago. These include chills, bodyaches, mixed dry and productive cough, sore throat, headache. The patient was seen here on 06/23/19 and diagnosed with a left otitis media and discharged home on amoxicillin. She has a past medical history of sickle cell trait, bursitis of the shoulders, scoliosis, umbilical hernia and an ovarian cyst. She has been taking the antibiotics and some o kly-dct-dbdpxjc cough/cold medications without much relief. No recent travel or sick contacts at home. She does not have a primary care physician. ED Past Medical Hx - Past Medical History Previous Medical History?: Yes Hx Sickle Cell Disease: Yes (Trait only) Additional medical history: Bursitis both shoulders. Scoleosis. Ovarian cyst. Umbilical hernia - Surgical History Past Surgical History?: Yes - Social History Smoking Status: Unknown if ever smoked Substance Use Type: None - Medications Home Medications: Home Medications Medication Instructions Recorded Confirmed Last Taken Type Nitrofurantoin [place]/M-Cryst 100 mg PO Q12HR #14 capsule 05/14/14 Unknown Rx [Macrobid] Ondansetron [Zofran Odt] 4 mg PO Q6H #10 tab.rapdis 05/14/14 Unknown Rx Phenazopyridine [Pyridium] 200 mg PO TID #6 tablet 05/14/14 Unknown Rx Hyoscyamine Subl [Levsin Sl 0.125 0.125 mg SL Q6HR PRN #12 tab 08/24/15 Unknown Rx TAB] Promethazine [Phenergan TAB] 25 mg PO Q6HR PRN #20 tab 08/24/15 Unknown Rx HYDROcodone/APAP 5-325 [[place] 1 each PO Q6HR PRN #15 tablet 03/14/18 Unknown Rx 5/325] Nitrofurantoin Monohyd/M-Cryst 100 mg PO BID #13 capsule 03/14/18 Unknown Rx [Macrobid 100 mg Capsule] Acetaminophen [Tylenol Arthritis] 650 mg PO Q6HR PRN #30 tablet.er 08/14/18 Unknown Rx Ibuprofen [Motrin] 600 mg PO Q8H PRN #30 tablet 08/14/18 Unknown Rx Ondansetron [Zofran Odt] 4 mg PO Q8HR PRN #20 tab.rapdis 08/14/18 Unknown Rx Amoxicillin [Amoxicillin TAB] 875 mg PO BID 10 Days #20 tablet 06/23/19 Unknown Rx Ibuprofen [Motrin 600 MG tab] 600 mg PO Q8H PRN #20 tablet 06/28/19 Unknown Rx guaiFENesin/CODEINE [Robitussin AC] 5 ml PO Q6H PRN #100 ml 06/28/19 Unknown Rx ED Review of Systems ROS: Stated complaint: FLU SYM/BODY PAIN Other details as noted in HPI Comment: All other systems reviewed and negative Constitutional: chills, fever Eyes: denies: eye pain, vision change ENT: ear pain, throat pain Respiratory: cough. denies: wheezing Cardiovascular: denies: chest pain, palpitations Gastrointestinal: denies: abdominal pain, vomiting, diarrhea Genitourinary: denies: dysuria, discharge Musculoskeletal: myalgia. denies: joint swelling Skin: denies: rash, lesions Neurological: headache. denies: weakness, numbness, paresthesias Physical Exam - Physical Exam Vital Signs: Vital Signs 06/28/19 12:49 Temperature 99.7 F H Pulse Rate 102 H Respiratory 18 Rate Blood Pressure 112/72 O2 Sat by Pulse 98 Oximetry Physical Exam: GENERAL: The patient is well-developed well-nourished. HEENT: Normocephalic. Atraumatic. Patient has moist mucous membranes. Normal appearing bilateral external ear canals and right-sided tympanic membrane. The left tympanic membrane is slightly erythematous but does have a normal light ref josefa. Oropharynx is clear without tonsillar hypertrophy, erythema, or exudates. EYES: Extraocular motions are intact. Pupils equal and reactive to light bilaterally. NECK: Supple. Trachea is midline. CHEST/LUNGS: Clear to auscultation. A productive sounding cough was heard during examination. No tachypnea or accessory muscle use. There is no respiratory distress noted. HEART/CARDIOVASCULAR: Regular. There is no tachycardia. There is no murmur. ABDOMEN: Abdomen is soft, nontender. Patient has normal bowel sounds. There is no abdominal distention. SKIN:Skin is warm and dry. . NEURO: The patient is awake, alert, and oriented. The patient is cooperative. The patient has no focal neurologic deficits. Normal speech. MUSCULOSKELETAL: There is no tenderness or deformity. There is no evidence of acute injury. ED Course Vital Signs 06/28/19 12:49 Temperature 99.7 F H Pulse Rate 102 H Respiratory 18 Rate Blood Pressure 112/72 O2 Sat by Pulse 98 Oximetry ED Medical Decision Making - Lab Data Result diagrams: 06/28/19 13:07 06/28/19 13:07 - Radiology Data Radiology results: image reviewed interpreted by me: Chest x-ray does not show any pleural effusions, pneumonia, pneumothorax, focal consolidation, or any other acute process. - Medical Decision Making Patient presents with a 5 or 6 day history of some flulike symptoms. She was previously treated for an otitis media. The patient's left tympanic membrane still has some erythema but does appear improved based on the description of her previous physical exam and she still has 5 days left on the amoxicillin. Negative for strep pharyngitis. It is possible the patient could have influenza but she is outside the window for treatment of Tamiflu and otherwise appears consistent with a viral upper respiratory infection. Chest x-ray did not show any pneumonia, pleural effusions, or any other acute process. Vital signs stable throughout her ED course. She'll be discharged home with some ibuprofen and Robitussin-AC. She has been instructed to follow up with a primary care physician and to return to the emergency Department with any worsening of her symptoms or any acute distress. - Differential Diagnosis otitis media, viral URI, pneumonia, influenza Critical Care Time: No Critical care attestation.: If time is entered above; I have spent that time in minutes in the direct care of this critically ill patient, excluding procedure time. ED Disposition Clinical Impression: Left otitis media Qualifiers: Otitis media type: unspecified Qualified Code(s): H66.92 - Otitis media, unspecified, left ear Upper respiratory infection Qualifiers: URI type: unspecified viral URI Qualified Code(s): J06.9 - Acute upper respiratory infection, unspecified Disposition: DC-01 TO HOME OR SELFCARE Is pt being admited?: No Condition: Stable Instructions: Otitis Media (ED), Upper Respiratory Infection (ED), Viral Syndrome (ED) Additional Instructions: Please follow up with a primary care physician in the next few days. Return to the emergency Department with any worsening of your symptoms or any acute distress. You can use Tylenol every 4-6 hours and ibuprofen every 6-8 hours, using weight- based dosing on the back of the bottle, as needed for any fever or discomfort. You have been prescribed a cough medication that has some codeine in it and therefore is sedating. This medication cannot be taken prior to driving, working, being responsible for children, and cannot be mixed with alcohol of any quantity. Prescriptions: Ibuprofen [Motrin 600 MG tab] 600 mg PO Q8H PRN #20 tablet PRN Reason: Pain guaiFENesin/CODEINE [Robitussin AC] 5 ml PO Q6H PRN #100 ml PRN Reason: Cough Referrals: ROSANA HOWELL MD [Staff Physician] - 2-3 Days [facility] [Outside] - 2-3 Days Forms: Work/School Release Form(ED) Time of Disposition: 14:30
[2019-06-28] MEDS ORDERED: POTASSIUM CHLORIDE ER 20 MEQ TAB PO ONE (14:39)
== END 2019-06-28 14:53 | disposition home or self-care (01) ==
LOC: ED 11:52
DX: J06.9 Acute upper respiratory infection, unspecified (principal); H66.92 Otitis media, unspecified, left ear; D57.3 Sickle-cell trait; Z79.899 Other long term (current) drug therapy; Z98.890 Other specified postprocedural states; Z88.8 Allergy status to other drugs, medicaments and biological substances
CPT/HCPCS: 36415; 71046; 80053; 85025; 87116; 87430; 96372; 99284; J1885

== ENCOUNTER 2020-08-02 07:00 | Emergency (ER) | payer SELFPAY ==
[2020-08-02 07:05] VITALS: BP 125/86
--- NOTE | 2020-08-02 07:58 | Emergency Department Report ---
ED Back Pain/Injury HPI - General Chief Complaint: Back Pain/Injury Stated Complaint: BACK PAIN Time Seen by Provider: 08/02/20 07:51 Source: patient Limitations: No Limitations - History of Present Illness MD Complaint: back pain -: Sudden (woke with the discomfort) Similar Symptoms Previously: Yes Place: home Radiation: other (upo the neck) Quality: dull, aching Consistency: constant Improves With: none Worsens With: movement (And palpation) Associated Symptoms: denies: weakness, chest pain, numbness, cough, difficulty urinating, incontinence, fever/chills, abdominal pain, loss of appetite, malaise, rash, seizure, shortness of breath, syncope - Related Data Previous Rx's Medication Instructions Recorded Last Taken Type Nitrofurantoin [place]/M-Cryst 100 mg PO Q12HR #14 capsule 05/14/14 Unknown Rx [Macrobid] Ondansetron [Zofran Odt] 4 mg PO Q6H #10 tab.rapdis 05/14/14 Unknown Rx Phenazopyridine [Pyridium] 200 mg PO TID #6 tablet 05/14/14 Unknown Rx Hyoscyamine Subl [Levsin Sl 0.125 0.125 mg SL Q6HR PRN #12 tab 08/24/15 Unknown Rx TAB] Promethazine [Phenergan TAB] 25 mg PO Q6HR PRN #20 tab 08/24/15 Unknown Rx HYDROcodone/APAP 5-325 [[place] 1 each PO Q6HR PRN #15 tablet 03/14/18 Unknown Rx 5/325] Nitrofurantoin Monohyd/M-Cryst 100 mg PO BID #13 capsule 03/14/18 Unknown Rx [Macrobid 100 mg Capsule] Acetaminophen [Tylenol Arthritis] 650 mg PO Q6HR PRN #30 tablet.er 08/14/18 Unknown Rx Ibuprofen [Motrin] 600 mg PO Q8H PRN #30 tablet 08/14/18 Unknown Rx Ondansetron [Zofran Odt] 4 mg PO Q8HR PRN #20 tab.rapdis 08/14/18 Unknown Rx Amoxicillin [Amoxicillin TAB] 875 mg PO BID 10 Days #20 tablet 06/23/19 Unknown Rx Ibuprofen [Motrin 600 MG tab] 600 mg PO Q8H PRN #20 tablet 06/28/19 Unknown Rx guaiFENesin/CODEINE [Robitussin AC] 5 ml PO Q6H PRN #100 ml 06/28/19 Unknown Rx Ketorolac [Toradol] 10 mg PO Q6H PRN #15 tablet 08/02/20 Unknown Rx methOCARBAMOL [Robaxin] 750 mg PO Q8H PRN #21 tablet 08/02/20 Unknown Rx Allergies Allergy/AdvReac Type Severity Reaction Status Date / Time tramadol AdvReac Headache Verified 08/02/20 07:05 ED Review of Systems ROS: Stated complaint: BACK PAIN Other details as noted in HPI Comment: All other systems reviewed and negative ED Past Medical Hx - Past Medical History Hx Sickle Cell Disease: Yes (Trait only) Additional medical history: Bursitis both shoulders. Scoleosis. Ovarian cyst. Umbilical hernia - Social History Smoking Status: Current Every Day Smoker Substance Use Type: Alcohol - Medications Home Medications: Home Medications Medication Instructions Recorded Confirmed Last Taken Type Nitrofurantoin [place]ell/M-Cryst 100 mg PO Q12HR #14 capsule 05/14/14 Unknown Rx [Macrobid] Ondansetron [Zofran Odt] 4 mg PO Q6H #10 tab.rapdis 05/14/14 Unknown Rx Phenazopyridine [Pyridium] 200 mg PO TID #6 tablet 05/14/14 Unknown Rx Hyoscyamine Subl [Levsin Sl 0.125 0.125 mg SL Q6HR PRN #12 tab 08/24/15 Unknown Rx TAB] Promethazine [Phenergan TAB] 25 mg PO Q6HR PRN #20 tab 08/24/15 Unknown Rx HYDROcodone/APAP 5-325 [[place] 1 each PO Q6HR PRN #15 tablet 03/14/18 Unknown Rx 5/325] Nitrofurantoin Monohyd/M-Cryst 100 mg PO BID #13 capsule 03/14/18 Unknown Rx [Macrobid 100 mg Capsule] Acetaminophen [Tylenol Arthritis] 650 mg PO Q6HR PRN #30 tablet.er 08/14/18 Unknown Rx Ibuprofen [Motrin] 600 mg PO Q8H PRN #30 tablet 08/14/18 Unknown Rx Ondansetron [Zofran Odt] 4 mg PO Q8HR PRN #20 tab.rapdis 08/14/18 Unknown Rx Amoxicillin [Amoxicillin TAB] 875 mg PO BID 10 Days #20 tablet 06/23/19 Unknown Rx Ibuprofen [Motrin 600 MG tab] 600 mg PO Q8H PRN #20 tablet 06/28/19 Unknown Rx guaiFENesin/CODEINE [Robitussin AC] 5 ml PO Q6H PRN #100 ml 06/28/19 Unknown Rx Ketorolac [Toradol] 10 mg PO Q6H PRN #15 tablet 08/02/20 Unknown Rx methOCARBAMOL [Robaxin] 750 mg PO Q8H PRN #21 tablet 08/02/20 Unknown Rx ED Physical Exam - General Limitations: No Limitations General appearance: alert, in no apparent distress - Head Head exam: Present: atraumatic, normocephalic - Eye Eye exam: Present: normal appearance, PERRL, EOMI Pupils: Present: normal accommodation - ENT ENT exam: Present: normal exam, normal orophraynx, mucous membranes moist, TM's normal bilaterally - Neck Neck exam: Present: normal inspection, tenderness (To the right trapezial region), other (neg spurlings). Absent: meningismus, lymphadenopathy, thyromegaly - Respiratory Respiratory exam: Present: normal lung sounds bilaterally. Absent: respiratory distress, wheezes, rales, chest wall tenderness, accessory muscle use - Cardiovascular Cardiovascular Exam: Present: regular rate, normal rhythm. Absent: systolic murmur, diastolic murmur, rubs, gallop - GI/Abdominal GI/Abdominal exam: Present: soft, normal bowel sounds. Absent: tenderness - Extremities Exam Extremities exam: Present: normal inspection, normal capillary refill - Back Exam Back exam: Present: normal inspection, tenderness, muscle spasm, paraspinal tenderness. Absent: CVA tenderness (R), CVA tenderness (L) - Neurological Exam Neurological exam: Present: alert, oriented X3 - Psychiatric Psychiatric exam: Present: normal affect, normal mood - Skin Skin exam: Present: warm, dry, intact, normal color. Absent: rash ED Course Vital Signs 08/02/20 07:04 Temperature 98.2 F Pulse Rate 101 H Respiratory 2 L Rate Blood Pressure 125/86 O2 Sat by Pulse 100 Oximetry ED Medical Decision Making - Medical Decision Making Pt presents the emergency department complaining of back pain most consistent with spasm/wry neck back Pain . Differential Diagnosis Includes Lumbar Go Versus Musculoskeletal Spasm, Strain Versus Sciatica. No Back Pain Red Flags on History or Physical. Presentation Not Consistent with Malignancy, Fracture, Cauda Equina, Abdominal Aortic Aneurysm, Viscus Perforation, Pulmonary Embolism, Renal Colic, Pyelonephritis. Patient reports no B symptoms, trauma trauma, i ncontinence, saddle anesthesia, distal weakness, urinary symptoms and is a febrile. Critical care attestation.: If time is entered above; I have spent that time in minutes in the direct care of this critically ill patient, excluding procedure time. ED Disposition Clinical Impression: Wry neck, Back pain Disposition: TO HOME OR SELFCARE Is pt being admited?: No Does the pt Need Aspirin: No Condition: Stable Instructions: Acute Back Pain, Adult, Acute Torticollis, Adult, Back Injury Prevention Prescriptions: methOCARBAMOL [Robaxin] 750 mg PO Q8H PRN #21 tablet PRN Reason: Spasms Ketorolac [Toradol] 10 mg PO Q6H PRN #15 tablet PRN Reason: Pain Referrals: STEPHEN JULIEN MD [Staff Physician] - 3-5 Days
== END 2020-08-02 08:09 | disposition home or self-care (01) ==
LOC: ED 07:00
DX: M43.6 Torticollis (principal); M54.9 Dorsalgia, unspecified; F17.200 Nicotine dependence, unspecified, uncomplicated; Z79.899 Other long term (current) drug therapy; Z88.8 Allergy status to other drugs, medicaments and biological substances
CPT/HCPCS: 99281

== ENCOUNTER 2020-08-07 17:20 | Emergency (ER) | payer SELFPAY | END 2020-08-07 18:48 | disposition left against medical advice (07) | LOC: ED 17:20 | DX: Z53.21 Procedure and treatment not carried out due to patient leaving prior to being seen by health care provider (principal) ==

== ENCOUNTER 2020-11-01 07:36 | Emergency (ER) | payer SELFPAY ==
[2020-11-01] MEDS ORDERED: SODIUM CHLORIDE 0.9% 1000 ML 1,000 ML IV ONE (07:50)
[2020-11-01] MEDS ORDERED: ONDANSETRON 4 MG/2 ML INJ IV ONE ×2 (07:50→08:43)
--- NOTE | 2020-11-01 07:52 | Emergency Department Report ---
HPI - General Chief Complaint: Abdominal Pain Time Seen by Provider: 11/01/20 07:45 - HPI HPI: This is a 39-year-old -[place] female presents to the emergency department from home with complaint of nausea and vomiting that has been going on since last night since patient got off of work. She denies any abdominal pain, fever, dysuria, vaginal bleeding or discharge, back pain. Patient has a history of a umbilical hernia, ovarian cyst. She has not taken anything for symptoms prior to presentation. She had some tacos last night that were made by her niece, but she was not the only one who ate this food and nobody else has her current symptoms. She recently traveled to [place]. No known exposure to anyone with COVID-19. No sick contacts at home. ED Past Medical Hx - Past Medical History Hx Sickle Cell Disease: Yes (Trait only) Additional medical history: Bursitis both shoulders. Scoleosis. Ovarian cyst. Umbilical hernia - Social History Smoking Status: Current Every Day Smoker Substance Use Type: None - Medications Home Medications: Home Medications Medication Instructions Recorded Confirmed Last Taken Type Nitrofurantoin [place]/M-Cryst 100 mg PO Q12HR #14 capsule 05/14/14 Unknown Rx [Macrobid] Ondansetron [Zofran Odt] 4 mg PO Q6H #10 tab.rapdis 05/14/14 Unknown Rx Phenazopyridine [Pyridium] 200 mg PO TID #6 tablet 05/14/14 Unknown Rx Hyoscyamine Subl [Levsin Sl 0.125 0.125 mg SL Q6HR PRN #12 tab 08/24/15 Unknown Rx TAB] Promethazine [Phenergan TAB] 25 mg PO Q6HR PRN #20 tab 08/24/15 Unknown Rx HYDROcodone/APAP 5-325 [[place] 1 each PO Q6HR PRN #15 tablet 03/14/18 Unknown Rx 5/325] Nitrofurantoin [place]/M-Cryst 100 mg PO BID #13 capsule 03/14/18 Unknown Rx [Macrobid 100 mg Capsule] Acetaminophen [Tylenol Arthritis] 650 mg PO Q6HR PRN #30 tablet.er 08/14/18 Unknown Rx Ibuprofen [Motrin] 600 mg PO Q8H PRN #30 tablet 08/14/18 Unknown Rx Amoxicillin [Amoxicillin TAB] 875 mg PO BID 10 Days #20 tablet 06/23/19 Unknown Rx Ibuprofen [Motrin 600 MG tab] 600 mg PO Q8H PRN #20 tablet 06/28/19 Unknown Rx guaiFENesin/CODEINE [Robitussin AC] 5 ml PO Q6H PRN #100 ml 06/28/19 Unknown Rx Ketorolac [Toradol] 10 mg PO Q6H PRN #15 tablet 08/02/20 Unknown Rx methOCARBAMOL [Robaxin] 750 mg PO Q8H PRN #21 tablet 08/02/20 Unknown Rx Ondansetron [Zofran ODT TAB] 4 mg PO Q8HR PRN #20 tab.rapdis 11/01/20 Unknown Rx ED Review of Systems ROS: Stated complaint: VOMITING Other details as noted in HPI Comment: All other systems reviewed and negative Constitutional: denies: chills, fever Eyes: denies: eye pain, vision change ENT: denies: ear pain, throat pain Respiratory: denies: cough, shortness of breath Cardiovascular: denies: chest pain, palpitations Gastrointestinal: nausea, vomiting. denies: abdominal pain Genitourinary: denies: dysuria, discharge Musculoskeletal: denies: back pain, arthralgia Skin: denies: rash, lesions Neurological: denies: headache, weakness Physical Exam - Physical Exam Vital Signs: Vital Signs 11/01/20 07:39 Temperature 98.2 F Pulse Rate 108 H Respiratory 20 Rate Blood Pressure 121/77 O2 Sat by Pulse 100 Oximetry Physical Exam: GENERAL: The patient is well-developed well-nourished. HENT: Normocephalic. Atraumatic. Patient has moist mucous membranes. EYES: Extraocular motions are intact. NECK: Supple. Trachea is midline. CHEST/LUNGS: Clear to auscultation. There is no respiratory distress noted. HEART/CARDIOVASCULAR: Regular. There is mild tachycardia. There is no murmur. ABDOMEN: Abdomen is soft, nontender. Patient has normal bowel sounds. There is no abdominal distention. SKIN: Skin is warm and dry. NEURO: The patient is awake, alert, and oriented. The patient is cooperative. The patient has no focal neurologic deficits. Normal speech. MUSCULOSKELETAL: There is no tenderness or deformity. There is no limitation range of motion. ED Course Vital Signs 11/01/20 07:39 Temperature 98.2 F Pulse Rate 108 H Respiratory 20 Rate Blood Pressure 121/77 O2 Sat by Pulse 100 Oximetry ED Medical Decision Making - Lab Data Result diagrams: 11/01/20 08:07 11/01/20 08:07 Lab Results 11/01/20 11/01/20 11/01/20 Range/Units 08:07 08:07 08:07 WBC 8.1 (4.5-11.0) K/mm3 RBC 4.46 (3.65-5.03) M/mm3 Hgb 10.0 L (10.1-14.3) gm/dl Hct 30.9 (30.3-42.9) % MCV 69 L (79-97) fl MCH 22 L (28-32) pg MCHC 32 (30-34) % RDW 20.5 H (13.2-15.2) % Plt Count 346 (140-440) K/mm3 Lymph % (Auto) 20.6 (13.4-35.0) % [place] % (Auto) 5.8 (0.0-7.3) % Eos % (Auto) 0.4 (0.0-4.3) % Baso % (Auto) 1.1 (0.0-1.8) % Lymph # (Auto) 1.7 (1.2-5.4) K/mm3 [place] # (Auto) 0.5 (0.0-0.8) K/mm3 Eos # (Auto) 0.0 (0.0-0.4) K/mm3 Baso # (Auto) 0.1 (0.0-0.1) K/mm3 Seg Neutrophils % 72.1 H (40.0-70.0) % Seg Neutrophils # 5.8 (1.8-7.7) K/mm3 Sodium 139 (137-145) mmol/L Potassium 4.0 (3.6-5.0) mmol/L Chloride 102.7 (98-107) mmol/L Carbon Dioxide 20 L (22-30) mmol/L Anion Gap 20 mmol/L BUN 16 (7-17) mg/dL Creatinine 0.7 (0.6-1.2) mg/dL Estimated GFR > 60 ml/min BUN/Creatinine Ratio 23 % Glucose 95 (65-100) mg/dL Calcium 9.7 (8.4-10.2) mg/dL Total Bilirubin 0.30 (0.1-1.2) mg/dL AST 39 (5-40) units/L ALT 12 (7-56) units/L Alkaline Phosphatase 87 (35-129) units/L Total Protein 8.4 H (6.3-8.2) g/dL Albumin 4.5 (3.9-5) g/dL Albumin/Globulin Ratio 1.2 % Lipase 21 (13-60) units/L HCG, Qual Negative (Negative) Urine Color (Yellow) Urine Turbidity (Clear) Urine pH (5.0-7.0) Ur Specific [place] (1.003-1.030) Urine Protein (Negative) mg/dL Urine Glucose (UA) (Negative) mg/dL Urine Ketones (Negative) mg/dL Urine Blood (Negative) Urine Nitrite (Negative) Urine Bilirubin (Negative) Urine Urobilinogen (<2.0) mg/dL Ur Leukocyte Esterase (Negative) Urine WBC (Auto) (0.0-6.0) /HPF Urine RBC (Auto) (0.0-6.0) /HPF U Epithel Cells (Auto) (0-13.0) /HPF Urine Mucus /HPF 11/01/20 Range/Units 08:50 WBC (4.5-11.0) K/mm3 RBC (3.65-5.03) M/mm3 Hgb (10.1-14.3) gm/dl Hct (30.3-42.9) % MCV (79-97) fl MCH (28-32) pg MCHC (30-34) % RDW (13.2-15.2) % Plt Count (140-440) K/mm3 Lymph % (Auto) (13.4-35.0) % [place] % (Auto) (0.0-7.3) % Eos % (Auto) (0.0-4.3) % Baso % (Auto) (0.0-1.8) % Lymph # (Auto) (1.2-5.4) K/mm3 [place] # (Auto) (0.0-0.8) K/mm3 Eos # (Auto) (0.0-0.4) K/mm3 Baso # (Auto) (0.0-0.1) K/mm3 Seg Neutrophils % (40.0-70.0) % Seg Neutrophils # (1.8-7.7) K/mm3 Sodium (137-145) mmol/L Potassium (3.6-5.0) mmol/L Chloride (98-107) mmol/L Carbon Dioxide (22-30) mmol/L Anion Gap mmol/L BUN (7-17) mg/dL Creatinine (0.6-1.2) mg/dL Estimated GFR ml/min BUN/Creatinine Ratio % Glucose (65-100) mg/dL Calcium (8.4-10.2) mg/dL Total Bilirubin (0.1-1.2) mg/dL AST (5-40) units/L ALT (7-56) units/L Alkaline Phosphatase (35-129) units/L Total Protein (6.3-8.2) g/dL Albumin (3.9-5) g/dL Albumin/Globulin Ratio % Lipase (13-60) units/L HCG, Qual (Negative) Urine Color Yellow (Yellow) Urine Turbidity Clear (Clear) Urine pH 7.0 (5.0-7.0) Ur Specific [place] 1.013 (1.003-1.030) Urine Protein 30 mg/dl (Negative) mg/dL Urine Glucose (UA) Neg (Negative) mg/dL Urine Ketones Tr (Negative) mg/dL Urine Blood Neg (Negative) Urine Nitrite Neg (Negative) Urine Bilirubin Neg (Negative) Urine Urobilinogen 2.0 (<2.0) mg/dL Ur Leukocyte Esterase Tr (Negative) Urine WBC (Auto) 2.0 (0.0-6.0) /HPF Urine RBC (Auto) 2.0 (0.0-6.0) /HPF U Epithel Cells (Auto) 3.0 (0-13.0) /HPF Urine Mucus Few /HPF - Radiology Data Radiology results: image reviewed interpreted by me: Abdominal x-ray shows nonspecific nonobstructive bowel gas. No free air. - Medical Decision Making This patient presents to the emergency department with a complaint of nausea with vomiting since last night. The patient does present actively vomiting/retching in the emergency department. An IV was placed and she was given IV fluid resuscitation and antiemetics. It took 8 mg of Zofran and 10 mg of Reglan before the patient stopped vomiting. Labs have been unremarkable including CBC, metabolic panel, lipase, urinalysis and the patient is not . Abdominal x-ray was done secondary to her history of a hernia, but t here was no obstructive findings found, nor any free air, or any acute process. Vital signs have been reassuring throughout her ED course including being afebrile. The patient was able to pass an oral challenge. She appears safe for discharge home at this time. We discussed increasing her oral rehydration and was given a prescription for Zofran ODT. She will return to the emergency department with any return or worsening of her symptoms, or with any acute distress. Critical Care Time: No Critical care attestation.: If time is entered above; I have spent that time in minutes in the direct care of this critically ill patient, excluding procedure time. ED Disposition Clinical Impression: Dehydration Nausea & vomiting Qualifiers: Vomiting type: unspecified Vomiting Intractability: non-intractable Qualified Code(s): R11.2 - Nausea with vomiting, unspecified Disposition: DC- TO HOME OR SELFCARE Is pt being admited?: No Condition: Stable Instructions: Nausea and Vomiting, Adult, Dehydration, Adult, Abdominal Pain (ED) Additional Instructions: Please follow-up with a primary care physician in the next few days. Increase your oral rehydration. Return to the emergency department with any worsening of your symptoms, new or concerning symptoms not addressed during this current emergency department visit, or with any acute distress. Prescriptions: Ondansetron [Zofran ODT TAB] 4 mg PO Q8HR PRN #20 tab.rapdis PRN Reason: Nausea Referrals: PRIMARY CARE [Primary Care Provider] - 2-3 Days [facility] [Provider Group] - 3-5 Days Time of Disposition: 11:12
[2020-11-01 08:32] LABS: Basophils # (Auto) 0.1 K/mm3 (0.0-0.1); Basophils % (Auto) 1.1 % (0.0-1.8); Eosinophils % (Auto) 0.4 % (0.0-4.3); Hematocrit 30.9 % (30.3-42.9); Lymphocytes # (Auto) 1.7 K/mm3 (1.2-5.4); Lymphocytes % (Auto) 20.6 % (13.4-35.0); Mean Corpuscular HGB Conc 32 % (30-34); Mean Corpuscular Volume 69 fl (79-97); Monocytes # (Auto) 0.5 K/mm3 (0.0-0.8); Monocytes % (Auto) 5.8 % (0.0-7.3); Red Blood Count 4.46 M/mm3 (3.65-5.03); Red Cell Distribution Width 20.5 % (13.2-15.2)
[2020-11-01 08:33] LABS: Platelet Count 346 K/mm3 (140-440)
[2020-11-01 08:56] LABS: Alanine Aminotransferase 12 units/L (7-56); Albumin 4.5 g/dL (3.9-5); Blood Urea Nitrogen 16 mg/dL (7-17); Calcium 9.7 mg/dL (8.4-10.2); Hemolysis Index 160
[2020-11-01] MEDS ORDERED: METOCLOPRAMIDE 10 MG/2 ML INJ IV ONE (09:09)
[2020-11-01 09:20] LABS: Bilirubin,Urine NEG (Negative); Blood,Urine NEG (Negative); Color,Urine Yellow (Yellow); Mucus,Urine FEW /HPF
--- NOTE | 2020-11-01 09:26 | XRay Report ---
ABDOMEN 2 VIEWS INDICATION / CLINICAL INFORMATION: Unspecified abdominal pain. COMPARISON: CT abdomen and pelvis with contrast from 08/14/2018. FINDINGS: TUBES / LINES: None. BOWEL GAS PATTERN: No significant abnormality. FREE AIR / EXTRALUMINAL GAS: None seen. ADDITIONAL FINDINGS: Bilateral Essure devices are present in the pelvis. CHEST: Visualized chest shows no significant abnormality. IMPRESSION: No significant abnormality of the abdomen. Signer Name: Trent Rothman MD Signed: 11/01/2020 9:22 AM Workstation Name: [id number]
[2020-11-01 10:01] LABS: BUN/Creatinine Ratio 23
[2020-11-01] MEDS ORDERED: PROCHLORPERAZINE EDISYLATE 10 MG/2 ML VIAL IV ONE (10:21)
[2020-11-01 11:22] VITALS: BP 124/70
== END 2020-11-01 11:23 | disposition home or self-care (01) ==
LOC: ED 07:36
DX: E86.0 Dehydration (principal); R11.2 Nausea with vomiting, unspecified; F17.200 Nicotine dependence, unspecified, uncomplicated; Z98.890 Other specified postprocedural states; Z88.6 Allergy status to analgesic agent; Z79.899 Other long term (current) drug therapy
CPT/HCPCS: 36415; 74019; 80053; 81001; 83690; 84703; 85025; 96361; 96374; 96375; 96376; 99284; J2405; J2765; J7030

== ENCOUNTER 2021-09-20 10:49 | Emergency (ER) | payer SELFPAY ==
[2021-09-20] MEDS ORDERED: SODIUM CHLORIDE 0.9% 1000 ML 1,000 ML IV ONE (12:05)
[2021-09-20] MEDS ORDERED: ONDANSETRON 4 MG/2 ML INJ IV ONE (12:05)
[2021-09-20] MEDS ORDERED: MORPHINE 4 MG/1 ML INJ IV ONE (12:05)
--- NOTE | 2021-09-20 12:18 | Emergency Department Report ---
ED Female HPI - General Chief complaint: Urogenital-Female Stated complaint: VOMITING/PAIN Time Seen by Provider: 09/20/21 11:56 Source: patient Mode of arrival: Ambulatory Limitations: No Limitations - History of Present Illness Initial comments: This is a 40-year-old female nontoxic, well nourished in appearance, no acute signs of distress presents to the ED with c/o of vaginal bleeding and pelvic pain with n/v x several days. Patient stated has history of dysmenorrhea due to fibroids and cysts and stated symptoms are monthly of these conditions. Patient stated that she was referred to [facility] which was instructed that she needs surgery for these conditions. Patient stated that she goes about 3 pads in 24 hours. Patient denies any upper abdominal pain. Patient that the symptoms are typical symptoms that she develops during menstrual cycles monthly. Patient denies any vaginal discharge or foul odor. Patient denies any chest pain, sh ortness of breathe, fever, chills, headache, stiff neck, numbness, tingling. Patient denies any urinary symptoms. Patient stated allergies to tramadol. MD Complaint: vaginal bleeding, pelvic pain -: days(s) Radiation: non-radiating Severity: mild Severity scale (0 -10): 8 Quality: cramping, aching Consistency: constant Improves with: none Worsens with: none Are you Now?: No Associated Symptoms: vaginal bleeding. denies: vaginal discharge, abdominal pain, nausea/vomiting, fever/chills, headaches, loss of appetite, dysuria, hematuria, rash, seizure, shortness of breath, syncope - Related Data Previous Rx's Medication Instructions Recorded Last Taken Type Nitrofurantoin [place]/M-Cryst 100 mg PO Q12HR #14 capsule 05/14/14 Unknown Rx [Macrobid] Ondansetron [Zofran Odt] 4 mg PO Q6H #10 tab.rapdis 05/14/14 Unknown Rx Phenazopyridine [Pyridium] 200 mg PO TID #6 tablet 05/14/14 Unknown Rx Hyoscyamine Subl [Levsin Sl 0.125 0.125 mg SL Q6HR PRN #12 tab 08/24/15 Unknown Rx TAB] Promethazine [Phenergan TAB] 25 mg PO Q6HR PRN #20 tab 08/24/15 Unknown Rx HYDROcodone/APAP 5-325 [[place] 1 each PO Q6HR PRN #15 tablet 03/14/18 Unknown Rx 5/325] Nitrofurantoin Monohyd/M-Cryst 100 mg PO BID #13 capsule 03/14/18 Unknown Rx [Macrobid 100 mg Capsule] Acetaminophen [Tylenol Arthritis] 650 mg PO Q6HR PRN #30 tablet.er 08/14/18 Unknown Rx Ibuprofen [Motrin] 600 mg PO Q8H PRN #30 tablet 08/14/18 Unknown Rx Amoxicillin [Amoxicillin TAB] 875 mg PO BID 10 Days #20 tablet 06/23/19 Unknown Rx Ibuprofen [Motrin 600 MG tab] 600 mg PO Q8H PRN #20 tablet 06/28/19 Unknown Rx guaiFENesin/CODEINE [Robitussin AC] 5 ml PO Q6H PRN #100 ml 06/28/19 Unknown Rx Ketorolac [Toradol] 10 mg PO Q6H PRN #15 tablet 08/02/20 Unknown Rx methOCARBAMOL [Robaxin] 750 mg PO Q8H PRN #21 tablet 08/02/20 Unknown Rx Ondansetron [Zofran ODT TAB] 4 mg PO Q8HR PRN #20 tab.rapdis 11/01/20 Unknown Rx Ferrous Sulfate [Iron 325 MG] 325 mg PO DAILY #30 tab 09/20/21 Unknown Rx Naproxen 500 mg PO Q8H PRN #12 tab 09/20/21 Unknown Rx Allergies Allergy/AdvReac Type Severity Reaction Status Date / Time tramadol AdvReac Headache Verified 11/01/20 07:42 ED Review of Systems ROS: Stated complaint: VOMITING/PAIN Other details as noted in HPI Comment: All other systems reviewed and negative Constitutional: denies: chills, fever Eyes: denies: eye pain, eye discharge, vision change ENT: denies: ear pain, throat pain Respiratory: denies: cough, shortness of breath, wheezing Cardiovascular: denies: chest pain, palpitations Endocrine: no symptoms reported Gastrointestinal: denies: abdominal pain, nausea, diarrhea Genitourinary: abnormal menses. denies: urgency, dysuria, frequency, hematuria, discharge, dyspareunia Musculoskeletal: denies: back pain, joint swelling, arthralgia Skin: denies: rash, lesions Neurological: denies: headache, weakness, paresthesias Psychiatric: denies: anxiety, depression Hematological/Lymphatic: denies: easy bleeding, easy bruising ED Past Medical Hx - Past Medical History Previous Medical History?: Yes Hx Sickle Cell Disease: Yes (Trait only) Additional medical history: Bursitis both shoulders. Scoleosis. Ovarian cyst. Umbilical hernia - Surgical History Past Surgical History?: No - Social History Smoking Status: Current Every Day Smoker Substance Use Type: None - Medications Home Medications: Home Medications Medication Instructions Recorded Confirmed Last Taken Type Nitrofurantoin [place]/M-Cryst 100 mg PO Q12HR #14 capsule 05/14/14 Unknown Rx [Macrobid] Ondansetron [Zofran Odt] 4 mg PO Q6H #10 tab.rapdis 05/14/14 Unknown Rx Phenazopyridine [Pyridium] 200 mg PO TID #6 tablet 05/14/14 Unknown Rx Hyoscyamine Subl [Levsin Sl 0.125 0.125 mg SL Q6HR PRN #12 tab 08/24/15 Unknown Rx TAB] Promethazine [Phenergan TAB] 25 mg PO Q6HR PRN #20 tab 08/24/15 Unknown Rx HYDROcodone/APAP 5-325 [[place] 1 each PO Q6HR PRN #15 tablet 03/14/18 Unknown Rx 5/325] Nitrofurantoin Monohyd/M-Cryst 100 mg PO BID #13 capsule 03/14/18 Unknown Rx [Macrobid 100 mg Capsule] Acetaminophen [Tylenol Arthritis] 650 mg PO Q6HR PRN #30 tablet.er 08/14/18 Unknown Rx Ibuprofen [Motrin] 600 mg PO Q8H PRN #30 tablet 08/14/18 Unknown Rx Amoxicillin [Amoxicillin TAB] 875 mg PO BID 10 Days #20 tablet 06/23/19 Unknown Rx Ibuprofen [Motrin 600 MG tab] 600 mg PO Q8H PRN #20 tablet 06/28/19 Unknown Rx guaiFENesin/CODEINE [Robitussin AC] 5 ml PO Q6H PRN #100 ml 06/28/19 Unknown Rx Ketorolac [Toradol] 10 mg PO Q6H PRN #15 tablet 08/02/20 Unknown Rx methOCARBAMOL [Robaxin] 750 mg PO Q8H PRN #21 tablet 08/02/20 Unknown Rx Ondansetron [Zofran ODT TAB] 4 mg PO Q8HR PRN #20 tab.rapdis 11/01/20 Unknown Rx Ferrous Sulfate [Iron 325 MG] 325 mg PO DAILY #30 tab 09/20/21 Unknown Rx Naproxen 500 mg PO Q8H PRN #12 tab 09/20/21 Unknown Rx ED Physical Exam - General Limitations: No Limitations General appearance: alert, in no apparent distress - Head Head exam: Present: atraumatic, normocephalic - Eye Eye exam: Present: normal appearance - Neck Neck exam: Present: normal inspection, full ROM. Absent: lymphadenopathy - Respiratory Respiratory exam: Present: normal lung sounds bilaterally. Absent: respiratory distress, wheezes, rales, rhonchi, stridor, chest wall tenderness, accessory muscle use, decreased breath sounds, prolonged expiratory - Cardiovascular Cardiovascular Exam: Present: regular rate, normal rhythm, normal heart sounds. Absent: bradycardia, tachycardia, irregular rhythm, systolic murmur, diastolic murmur, rubs, gallop - GI/Abdominal GI/Abdominal exam: Present: soft, normal bowel sounds. Absent: distended, tenderness, guarding, rebound, rigid, diminished bowel sounds - Extremities Exam Extremities exam: Present: full ROM - Back Exam Back exam: Present: normal inspection, full ROM. Absent: tenderness, CVA tenderness (R), CVA tenderness (L), muscle spasm, paraspinal tenderness, vertebral tenderness, rash noted - Neurological Exam Neurological exam: Present: alert, oriented X3, normal gait - Psychiatric Psychiatric exam: Present: normal affect, normal mood - Skin Skin exam: Present: warm, dry, intact, normal color. Absent: rash ED Course Vital Signs 09/20/21 10:54 Temperature 98.2 F Pulse Rate 80 Respiratory 18 Rate Blood Pressure 123/83 O2 Sat by Pulse 99 Oximetry - Reevaluation(s) Reevaluation #1: 09/20/21 12:19 Patient is speaking in full sentences with no signs of distress noted. ED Medical Decision Making - Lab Data Result diagrams: 09/20/21 12:36 09/20/21 12:36 Lab Results 09/20/21 09/20/21 09/20/21 Range/Units 12:36 12:36 12:36 WBC 10.4 (4.5-11.0) K/mm3 RBC 4.51 (3.65-5.03) M/mm3 Hgb 8.6 L (10.1-14.3) gm/dl Hct 28.2 L (30.3-42.9) % MCV 63 L (79-97) fl MCH 19 L (28-32) pg MCHC 31 (30-34) % RDW 20.8 H (13.2-15.2) % Plt Count 469 H (140-440) K/mm3 Sodium 140 (137-145) mmol/L Potassium 3.4 L (3.6-5.0) mmol/L Chloride 102.5 (98-107) mmol/L Carbon Dioxide 22 (22-30) mmol/L Anion Gap 19 mmol/L BUN 14 (7-17) mg/dL Creatinine 0.6 (0.6-1.2) mg/dL Estimated GFR > 60 ml/min BUN/Creatinine Ratio 23 % Glucose 97 (65-100) mg/dL Calcium 9.3 (8.4-10.2) mg/dL Total Bilirubin 0.30 (0.1-1.2) mg/dL AST 19 (5-40) units/L ALT 11 (7-56) units/L Alkaline Phosphatase 83 (35-129) units/L Total Protein 7.9 (6.3-8.2) g/dL Albumin 4.5 (3.9-5) g/dL Albumin/Globulin Ratio 1.3 % HCG, Qual Negative (Negative) Urine Color (Yellow) Urine Turbidity (Clear) Urine pH (5.0-7.0) Ur Specific [place] (1.003-1.030) Urine Protein (Negative) mg/dL Urine Glucose (UA) (Negative) mg/dL Urine Ketones (Negative) mg/dL Urine Blood (Negative) Urine Nitrite (Negative) Urine Bilirubin (Negative) Urine Urobilinogen (<2.0) mg/dL Ur Leukocyte Esterase (Negative) Urine WBC (Auto) Urine RBC (Auto) (0.0-6.0) /HPF U Epithel Cells (Auto) (0-13.0) /HPF Urine Mucus /HPF 09/20/21 Range/Units Unknown WBC (4.5-11.0) K/mm3 RBC (3.65-5.03) M/mm3 Hgb (10.1-14.3) gm/dl Hct (30.3-42.9) % MCV (79-97) fl MCH (28-32) pg MCHC (30-34) % RDW (13.2-15.2) % Plt Count (140-440) K/mm3 Sodium (137-145) mmol/L Potassium (3.6-5.0) mmol/L Chloride (98-107) mmol/L Carbon Dioxide (22-30) mmol/L Anion Gap mmol/L BUN (7-17) mg/dL Creatinine (0.6-1.2) mg/dL Estimated GFR ml/min BUN/Creatinine Ratio % Glucose (65-100) mg/dL Calcium (8.4-10.2) mg/dL Total Bilirubin (0.1-1.2) mg/dL AST (5-40) units/L ALT (7-56) units/L Alkaline Phosphatase (35-129) units/L Total Protein (6.3-8.2) g/dL Albumin (3.9-5) g/dL Albumin/Globulin Ratio % HCG, Qual (Negative) Urine Color Yellow (Yellow) Urine Turbidity Clear (Clear) Urine pH 7.0 (5.0-7.0) Ur Specific [place] 1.012 (1.003-1.030) Urine Protein 30 mg/dl (Negative) mg/dL Urine Glucose (UA) Neg (Negative) mg/dL Urine Ketones 80 (Negative) mg/dL Urine Blood Lg (Negative) Urine Nitrite Neg (Negative) Urine Bilirubin Neg (Negative) Urine Urobilinogen < 2.0 (<2.0) mg/dL Ur Leukocyte Esterase Neg (Negative) Urine WBC (Auto) Not Reportable Urine RBC (Auto) 108.0 (0.0-6.0) /HPF U Epithel Cells (Auto) 4.0 (0-13.0) /HPF Urine Mucus Few /HPF - Medical Decision Making This is a 40-year-old female that presents with dysmenorrhagia and anemia. Patient is stable and was examined by me. There is no abdominal tenderness. Negative signs of symptoms of appendicitis or acute abdomen. Labs obtained. UA obtained. Vital signs are stable prior to discharge. Patient received medical treatment in the ED which patient stated symptoms has resovled and subsided. Was instructed note to operate any machinery due to possible drowsiness and stated someone will drive the patient home. A by mouth challenge has been obtained and patient tolerated well with no nausea vomiting. Patient due to symptoms of pain as result of subsided. Patient was also instructed to Follow-up with a OBGYN doctor in 3-5 days or if symptoms worsen and continue return to emergency room as soon as possible. At time of discharge, the patient does not seem toxic or ill in appearance. No acute signs of distress noted. Patient agrees to discharge treatment plan of care. No further questions noted by the patient. Critical care attestation.: If time is entered above; I have spent that time in minutes in the direct care of this critically ill patient, excluding procedure time. ED Disposition Clinical Impression: Dysmenorrhea Anemia Qualifiers: Anemia type: iron deficiency Iron deficiency anemia type: unspecified iron deficiency Qualified Code(s): D50.9 - Iron deficiency anemia, unspecified Disposition: 01 HOME / SELF CARE / HOMELESS Is pt being admited?: No Does the pt Need Aspirin: No Condition: Stable Instructions: Dysmenorrhea, [id number] Additional Instructions: Follow-up with a OBGYN doctor in 3-5 days or if symptoms worsen and continue return to emergency room as soon as possible. Prescriptions: Ferrous Sulfate [Iron 325 MG] 325 mg PO DAILY #30 tab Naproxen 500 mg PO Q8H PRN #12 tab PRN Reason: Pain , Severe (7-10) Referrals: PRIMARY CARE [Primary Care Provider] - 3-5 Days [facility] [Provider Group] - 3-5 Days [facility] [Provider Group] - 3-5 Days Forms: Work/School Release Form(ED) Time of Disposition: 14:36
[2021-09-20 13:21] LABS: Hematocrit 28.2 % (30.3-42.9); Hemoglobin 8.6 gm/dl (10.1-14.3); Mean Corpuscular HGB Conc 31 % (30-34); Platelet Count 469 K/mm3 (140-440); Red Blood Count 4.51 M/mm3 (3.65-5.03)
[2021-09-20 13:23] LABS: Mean Corpuscular Volume 63 fl (79-97); Red Cell Distribution Width 20.8 % (13.2-15.2)
[2021-09-20 13:41] LABS: Alanine Aminotransferase 11 units/L (7-56); Albumin 4.5 g/dL (3.9-5); BUN/Creatinine Ratio 23; Blood Urea Nitrogen 14 mg/dL (7-17); Calcium 9.3 mg/dL (8.4-10.2); Hemolysis Index 1
[2021-09-20] MEDS ORDERED: POTASSIUM CHLORIDE ER 20 MEQ TAB PO ONE (13:50)
[2021-09-20 14:21] LABS: Bilirubin,Urine NEG (Negative); Blood,Urine LG (Negative); Color,Urine Yellow (Yellow); Mucus,Urine FEW /HPF; Urobilinogen,Urine < 2.0 mg/dL (<2.0)
[2021-09-20 15:13] LABS: Anisocytosis 1+; Eosinophils % (Manual) 0 % (0.0-4.3); Hypochromasia 3+; Large Platelets Few; Platelet Estimate Consistent w Auto; Total Cells Counted 100
[2021-09-20 15:27] VITALS: BP 140/80
== END 2021-09-20 15:26 | disposition home or self-care (01) ==
LOC: ED 10:49
DX: N94.6 Dysmenorrhea, unspecified (principal); D64.9 Anemia, unspecified; F17.200 Nicotine dependence, unspecified, uncomplicated; Z79.899 Other long term (current) drug therapy; Z88.6 Allergy status to analgesic agent
CPT/HCPCS: 36415; 80053; 81001; 84703; 85007; 85025; 96361; 96374; 96375; 99283; J2270; J2405; J7030; 99282; Q0162

== ENCOUNTER 2021-09-23 08:19 | Emergency (ER) | payer SELFPAY ==
[2021-09-23] MEDS ORDERED: SODIUM CHLORIDE 0.9% 1000 ML 1,000 ML IV ONE (09:54)
[2021-09-23] MEDS ORDERED: PANTOPRAZOLE 40 MG INJ IV ONE (09:54)
[2021-09-23] MEDS ORDERED: ONDANSETRON 4 MG/2 ML INJ IV ONE (09:54)
[2021-09-23] MEDS ORDERED: MORPHINE 4 MG/1 ML INJ IV ONE (09:54)
--- NOTE | 2021-09-23 09:58 | Emergency Department Report ---
ED Abdominal Pain HPI - General Chief Complaint: Abdominal Pain Stated Complaint: ABD PAIN/SEEN 2 DAYS AGO FOR SAME Time Seen by Provider: 09/23/21 09:53 Source: patient Mode of arrival: Ambulatory Limitations: No Limitations - History of Present Illness Initial Comments: Patient is 40 years old female with history of scoliosis. Patient presented to the ER complaining of lower abdominal pain that is been going on for few days. Patient described her pain as sharp with no radiation. Patient also complaining of nausea and vomiting. She also reported hematuria. Patient denied any fever or chills. She was seen here 2 days ago for similar complaint. Patient is crying in tears and rolling all over the bed. MD Complaint: abdominal pain -: days(s) Location: suprapubic Radiation: none Migration to: no migration - Related Data Home Medications Medication Instructions Recorded Confirmed Last Taken No Known Home Medications [No 09/23/21 09/23/21 Unknown Reported Home Medications] Allergies Allergy/AdvReac Type Severity Reaction Status Date / Time tramadol AdvReac Headache Verified 09/23/21 10:52 ED Review of Systems ROS: Stated complaint: ABD PAIN/SEEN 2 DAYS AGO FOR SAME Other details as noted in HPI Comment: All other systems reviewed and negative Constitutional: denies: chills, fever Respiratory: denies: cough, shortness of breath, SOB with exertion Cardiovascular: denies: chest pain, palpitations Gastrointestinal: abdominal pain, nausea, vomiting. denies: diarrhea, constipation, hematemesis, melena, hematochezia Genitourinary: hematuria Musculoskeletal: denies: back pain Neurological: denies: headache, weakness, numbness, paresthesias, confusion ED Past Medical Hx - Past Medical History Hx Sickle Cell Disease: Yes (Trait only) Additional medical history: Bursitis both shoulders. Scoleosis. Ovarian cyst. Umbilical hernia - Social History Smoking Status: Current Every Day Smoker Substance Use Type: None - Medications Home Medications: Home Medications Medication Instructions Recorded Confirmed Last Taken Type No Known Home Medications [No 09/23/21 09/23/21 Unknown History Reported Home Medications] ED Physical Exam - General Limitations: No Limitations General appearance: alert, in distress - Head Head exam: Present: atraumatic, normocephalic, normal inspection - Eye Eye exam: Present: normal appearance - ENT ENT exam: Present: mucous membranes dry - Neck Neck exam: Present: normal inspection, full ROM. Absent: tenderness, meningismus - Respiratory Respiratory exam: Present: normal lung sounds bilaterally - Cardiovascular Cardiovascular Exam: Present: regular rate, normal rhythm, normal heart sounds - GI/Abdominal GI/Abdominal exam: Present: soft, tenderness, normal bowel sounds. Absent: distended, guarding, rebound, rigid, organomegaly, mass, bruit, pulsatile mass, hernia - Extremities Exam Extremities exam: Present: normal inspection, full ROM, normal capillary refill. Absent: tenderness - Back Exam Back exam: Present: normal inspection, full ROM. Absent: CVA tenderness (R), CVA tenderness (L) - Neurological Exam Neurological exam: Present: alert, oriented X3, CN II-XII intact - Psychiatric Psychiatric exam: Present: normal mood - Skin Skin exam: Present: warm, intact, normal color ED Course Vital Signs 09/23/21 09/23/21 08:48 10:55 Temperature 98.2 F 98.5 F Pulse Rate 94 H 71 Respiratory 16 14 Rate Blood Pressure 128/82 121/80 [Left] O2 Sat by Pulse 100 96 Oximetry ED Medical Decision Making - Lab Data Result diagrams: 09/23/21 10:04 09/23/21 10:04 - Radiology Data Radiology results: report reviewed - Medical Decision Making Patient is 40 years old female with history of scoliosis. Patient presented to the ER complaining of lower abdominal pain that is been going on for few days. Patient described her pain as sharp with no radiation. Patient also complaining of nausea and vomiting. She also reported hematuria. Patient denied any fever or chills. She was seen here 2 days ago for similar complaint. Patient is crying in tears and rolling all over the bed. Patient received morphine and Zofran and Protonix. Patient stated that she is feeling much better. Labs reviewed and is unremarkable. CT abdomen and pelvis is negative for acute finding. Patient symptoms most likely related to gastric ulcer. Patient given prescription for Nexium and Zofran and advised to follow- up with her primary care physician in the next 2 to 3 days and to return to the ER if she develop any new symptoms. Critical care attestation.: If time is entered above; I have spent that time in minutes in the direct care of this critically ill patient, excluding procedure time. ED Disposition Clinical Impression: Acute abdominal pain, Gastritis Disposition: HOME / SELF CARE / HOMELESS Is pt being admited?: No Condition: Stable Instructions: Abdominal Pain (ED), Gastritis, Adult, [id number], Abdominal Pain, Adult Referrals: ROSANA HOWELL MD [Primary Care Provider] - 3-5 Days
[2021-09-23 10:56] VITALS: BP 121/80
[2021-09-23 11:38] LABS: Basophils # (Auto) 0.1 K/mm3 (0.0-0.1); Basophils % (Auto) 0.9 % (0.0-1.8); Eosinophils % (Auto) 0.4 % (0.0-4.3); Hematocrit 30.4 % (30.3-42.9); Hemoglobin 9.3 gm/dl (10.1-14.3); Lymphocytes # (Auto) 1.8 K/mm3 (1.2-5.4); Lymphocytes % (Auto) 18.3 % (13.4-35.0); Mean Corpuscular HGB Conc 31 % (30-34); Monocytes # (Auto) 0.5 K/mm3 (0.0-0.8); Monocytes % (Auto) 4.9 % (0.0-7.3); Platelet Count 595 K/mm3 (140-440); Red Blood Count 4.88 M/mm3 (3.65-5.03)
[2021-09-23 11:45] LABS: Mean Corpuscular Volume 62 fl (79-97); Red Cell Distribution Width 20.5 % (13.2-15.2)
[2021-09-23 11:56] LABS: Alanine Aminotransferase 11 units/L (7-56); Albumin 4.9 g/dL (3.9-5); BUN/Creatinine Ratio 16; Blood Urea Nitrogen 13 mg/dL (7-17); Calcium 10.1 mg/dL (8.4-10.2); Hemolysis Index 7
[2021-09-23 12:00] LABS: Bilirubin,Direct < 0.2 mg/dL (0-0.2)
[2021-09-23 13:55] LABS: Bilirubin,Urine NEG (Negative); Blood,Urine LG (Negative); Color,Urine Yellow (Yellow); Mucus,Urine FEW /HPF; Protein,Urine <15 mg/dL mg/dL (Negative); Urobilinogen,Urine < 2.0 mg/dL (<2.0)
[2021-09-23 14:17] LABS: HCG Qualitative,Urine Negative (Negative)
--- NOTE | 2021-09-23 14:54 | Cat Scan Report ---
CT ABDOMEN AND PELVIS WITH CONTRAST INDICATION / CLINICAL INFORMATION: abdominal pain OMNIPAQUE 300 100ML. TECHNIQUE: Axial CT images were obtained through the abdomen and pelvis after IV contrast. All CT sc ans at this location are performed using CT dose reduction for ALARA by means of automated exposure c ontrol. COMPARISON: CT dated 08/14/18 FINDINGS: LOWER CHEST: No significant abnormality. LIVER: No significant abnormality. GALLBLADDER: No significant abnormality. BILE DUCTS: No significant abnormality. PANCREAS: No significant abnormality. SPLEEN: No significant abnormality. ADRENALS: No significant abnormality. RIGHT KIDNEY / URETER: Simple cysts are unchanged. No acute abnormality. LEFT KIDNEY / URETER: No significant abnormality. STOMACH / SMALL BOWEL: No significant abnormality. COLON: No significant abnormality. APPENDIX: No significant abnormality. PERITONEUM: No free fluid. No free air. No fluid collection. LYMPH NODES: No significant adenopathy. AORTA / ARTERIES: No significant abnormality. IVC / VEINS: No significant abnormality. URINARY BLADDER: No significant abnormality. REPRODUCTIVE ORGANS: No acute abnormality. Bilateral tubal occlusion devices. ADDITIONAL FINDINGS: None. SKELETAL SYSTEM: No significant abnormality. IMPRESSION: 1. No acute process in the abdomen or pelvis. Signer Name: Diana Shah MD Signed: 09/23/2021 2:49 PM Workstation Name: [id number]
[2021-09-23] MEDS ORDERED: KETOROLAC 30 MG/1 ML INJ IV ONE (15:34)
== END 2021-09-23 16:20 | disposition home or self-care (01) ==
LOC: ED 08:19
DX: K29.70 Gastritis, unspecified, without bleeding (principal); F17.200 Nicotine dependence, unspecified, uncomplicated; Z79.899 Other long term (current) drug therapy; Z88.6 Allergy status to analgesic agent
CPT/HCPCS: 36415; 74177; 80048; 80076; 81001; 81025; 83690; 85025; 96361; 96374; 96375; 99284; C9113; J1885; J2270; J2405; J7030; Q9967; Q0162